=== PATIENT | female | born 1935 | race Caucasian/White ===

== ENCOUNTER 2017-09-17 09:12 | Observation (INO) | payer MEDICARE ==
--- NOTE | 2017-09-17 10:29 | EDM.PDOC ---
ED HPI GENERAL MEDICAL PROBLEM - General Chief Complaint: Gastrointestinal Problem Stated Complaint: VOMITING/DIARRHEA Time Seen by Provider: 09/17/17 10:10 Source of Information: Reports: Patient History Limitations: Reports: No Limitations - History of Present Illness INITIAL COMMENTS - FREE TEXT/NARRATIVE: The patient states that she has had occasional vomiting, and watery diarrhea since 09/14/2017. She states that she does not vomit every day, but typically has 2 episodes of diarrhea during the day, and one at night. She states that she started taking [id number] loperamide on Wednesday, 2017. She does not recall the exact number of tablets she has taken, but is likely taking an appropriate dosage. She is unsure if the loperamide has helped. She denies taking any other [id number] or home remedies for her symptoms. She denies recent abdominal pain. No recent fever. No urinary symptoms. She does feel generally weak. He has had similar symptoms in the past , when she had gastroenteritis. The patient's PCP is Dr. Jasbir Cole. Treatments PIPE THREADER: Reports: Other (see below) Other Treatments PIPE THREADER: immodium - Related Data Allergies Allergy/AdvReac Type Severity Reaction Status Date / Time No Known Allergies Allergy Verified 09/17/17 09:31 Home Meds: Home Meds Aspirin 81 mg PO DAILY 09/17/17 [History] Fish Oil/DHA/EPA [Fish Oil 1,200 MG] 1,200 mg PO DAILY 09/17/17 [History] Flaxseed/Omega3,6,9/Fatty Acid [Flax Seed Oil 1,300 mg Softgel] 1 tab PO DAILY 09/17/17 [History] Lisinopril 20 mg PO BID 09/17/17 [History] Simvastatin [Zocor] 40 mg PO BEDTIME 09/17/17 [History] Ubidecarenone [Co Q-10] 20 mg PO DAILY 09/17/17 [History] Vitamin D3/Vitamin K2 [D3 + K2 Dots 1,000 Unit] 1 each PO DAILY 09/17/17 [ History] hydroCHLOROthiazide [Hydrochlorothiazide] 12.5 mg PO DAILY 09/17/17 [History] metFORMIN HCl [Metformin HCl] 1,000 mg PO BID 09/17/17 [History] Past Medical History Cardiovascular History: Reports: High Cholesterol, Hypertension Endocrine/Metabolic History: Reports: Diabetes, Type II, Obesity/BMI 30+ - Past Surgical History HEENT Surgical History: Reports: Cataract Surgery, Oral Surgery ([place] teeth extraction) GI Surgical History: Reports: Cholecystectomy (around 1997), Hernia, Abdominal ( para-umbilical in the late 1960s) Social & Family History - Family History Cardiac: Reports: Angina, Hypertension - Tobacco Use Smoking Status *Q: Never Smoker Second Hand Smoke Exposure: No - Caffeine Use Caffeine Use: Reports: Coffee - Alcohol Use Alcohol Use History: No - Recreational Drug Use Recreational Drug Use: No - Living Situation & Occupation Living situation: Reports: , Alone Occupation: Retired ED ROS GENERAL - Review of Systems Review Of Systems: ROS reveals no pertinent complaints other than HPI. ED EXAM, GI/ABD - Physical Exam Exam: See Below Exam Limited By: No Limitations General Appearance: Alert, WD/WN, No Apparent Distress Eyes: Bilateral: Normal Appearance, EOMI Ears: Normal External Exam, Hearing Grossly Normal Nose: Normal Inspection, No Blood Throat/Mouth: Normal Inspection, Normal Lips, Normal Voice, No Airway Compromise Head: Atraumatic, Normocephalic Neck: Normal Inspection, Full Range of Motion Respiratory/Chest: No Respiratory Distress, Lungs Clear, Normal Breath Sounds, No Accessory Muscle Use Cardiovascular: Normal Peripheral Pulses, Regular Rate, Rhythm, No Gallop, No JVD, No Murmur, No Rub GI/Abdominal Exam: Normal Bowel Sounds, Soft, Non-Tender, No Organomegaly, No Distention, No Abnormal Bruit, No Mass, Other (Obese) (Female) Exam: Deferred Rectal (Female) Exam: Deferred Back Exam: Normal Inspection, Full Range of Motion, NT Extremities: Normal Inspection, Normal Range of Motion, No Pedal Edema, Normal Capillary Refill, Other (2+ bilateral pretibial edema) Neurological: Alert, Oriented, Normal Cognition, No Motor/Sensory Deficits Psychiatric: Normal Affect Skin Exam: Warm, Dry, Intact, Normal Color, No Rash Course - Vital Signs Last Recorded V/S: Last Vital Signs Temp 36.5 C 09/17/17 09:25 Pulse 77 09/17/17 09:25 Resp 15 09/17/17 09:25 BP 130/60 09/17/17 09:25 Pulse Ox 100 09/17/17 09:25 Orthostatic Blood Pressure [ 111/47 Standing] Orthostatic Blood Pressure [ 130/94 Sitting] Orthostatic Blood Pressure [ 131/52 Supine] - Orders/Labs/Meds Orders: Active Orders 24 hr Category Date Time Status Orthostatic Vital Signs [RC] STAT Care 09/17/17 10:16 Active Orthostatic Vital Signs [RC] STAT Care 09/17/17 11:16 Active UA W/MICROSCOPIC [URIN] Stat Lab 09/17/17 10:45 Ordered Magnesium Sulfate/Water [Magnesium Sulfate 2 GM in Med 09/17/17 11:44 Active Water 50 ML] 2 gm Premix Bag 1 bag IV ONETIME Medication Orders Magnesium Sulfate 2 gm/ Premix 50 mls @ 50 mls/hr IV ONETIME ONE Stop: 09/17/17 12:43 Labs: Laboratory Tests 09/17/17 09/17/17 09/17/17 Range/Units 10:45 11:00 11:00 WBC 9.88 (3.98-10.04) K/mm3 RBC 4.51 (3.98-5.22) M/mm3 Hgb 13.1 (11.2-15.7) gm/L Hct 38.9 (34.1-44.9) % MCV 86.3 (79.4-94.8) fl MCH 29.0 (25.6-32.2) pg MCHC 33.7 (32.2-35.5) g/dl RDW Std Deviation 41.0 (36.4-46.3) fL Plt Count 430 H (182-369) K/mm3 MPV 8.9 L (9.4-12.3) fl Neutrophils % (Manual) 70 H (40-60) % Band Neutrophils % 0 (0-10) % Lymphocytes % (Manual) 20 (20-40) % Atypical Lymphs % 0 % Monocytes % (Manual) 8 (2-10) % Eosinophils % (Manual) 2 (0.7-5.8) % Basophils % (Manual) 0 L (0.1-1.2) Toxic Granulation 2+ moderate Platelet Estimate Adequate Plt Morphology Comment Normal Anisocytosis 1+ slight RBC Morph Comment Not Reportable Sodium 131 L (136-145) mEq/L Potassium 4.5 (3.5-5.1) mEq/L Chloride 94 L (98-107) mEq/L Carbon Dioxide 28 (21-32) mEq/L Anion Gap 13.5 (5-15) BUN 18 (7-18) mg/dL Creatinine 1.1 H (0.55-1.02) mg/dL Est Cr Clr Drug Dosing 37.68 mL/min Estimated GFR (MDRD) 47 (>60) mL/min BUN/Creatinine Ratio 16.4 (14-18) Glucose 176 H (83-115) mg/dL Calcium 9.0 (8.5-10.1) mg/dL Magnesium (1.8-2.4) mg/dl Total Bilirubin 0.8 (0.2-1.0) mg/dL AST 66 H (15-37) U/L ALT 61 H (14-59) U/L Alkaline Phosphatase 120 H (46-116) U/L Total Protein 7.0 (6.4-8.2) g/dl Albumin 3.3 L (3.4-5.0) g/dl Globulin 3.7 gm/dL Albumin/Globulin Ratio 0.9 L (1-2) Urine Color Light yellow (Yellow) Urine Appearance Clear (Clear) Urine pH 7.0 (5.0-8.0) Ur Specific [place] 1.015 (1.005-1.030) Urine Protein Negative (Negative) Urine Glucose (UA) Negative (Negative) Urine Ketones Negative (Negative) Urine Occult Blood Negative (Negative) Urine Nitrite Negative (Negative) Urine Bilirubin Negative (Negative) Urine Urobilinogen 0.2 (0.2-1.0) Ur Leukocyte Esterase Negative (Negative) Urine RBC Not seen (0-5) /hpf Urine WBC Not seen (0-5) /hpf Ur Epithelial Cells 0-5 (0-5) /hpf Urine Bacteria Not seen (FEW) /hpf Urine Mucus Not seen (FEW) /hpf 09/17/17 Range/Units 11:00 WBC (3.98-10.04) K/mm3 RBC (3.98-5.22) M/mm3 Hgb (11.2-15.7) gm/L Hct (34.1-44.9) % MCV (79.4-94.8) fl MCH (25.6-32.2) pg MCHC (32.2-35.5) g/dl RDW Std Deviation (36.4-46.3) fL Plt Count (182-369) K/mm3 MPV (9.4-12.3) fl Neutrophils % (Manual) (40-60) % Band Neutrophils % (0-10) % Lymphocytes % (Manual) (20-40) % Atypical Lymphs % % Monocytes % (Manual) (2-10) % Eosinophils % (Manual) (0.7-5.8) % Basophils % (Manual) (0.1-1.2) Toxic Granulation Platelet Estimate Plt Morphology Comment Anisocytosis RBC Morph Comment Sodium (136-145) mEq/L Potassium (3.5-5.1) mEq/L Chloride (98-107) mEq/L Carbon Dioxide (21-32) mEq/L Anion Gap (5-15) BUN (7-18) mg/dL Creatinine (0.55-1.02) mg/dL Est Cr Clr Drug Dosing mL/min Estimated GFR (MDRD) (>60) mL/min BUN/Creatinine Ratio (14-18) Glucose (83-115) mg/dL Calcium (8.5-10.1) mg/dL Magnesium 1.2 L (1.8-2.4) mg/dl Total Bilirubin (0.2-1.0) mg/dL AST (15-37) U/L ALT (14-59) U/L Alkaline Phosphatase (46-116) U/L Total Protein (6.4-8.2) g/dl Albumin (3.4-5.0) g/dl Globulin gm/dL Albumin/Globulin Ratio (1-2) Urine Color (Yellow) Urine Appearance (Clear) Urine pH (5.0-8.0) Ur Specific [place] (1.005-1.030) Urine Protein (Negative) Urine Glucose (UA) (Negative) Urine Ketones (Negative) Urine Occult Blood (Negative) Urine Nitrite (Negative) Urine Bilirubin (Negative) Urine Urobilinogen (0.2-1.0) Ur Leukocyte Esterase (Negative) Urine RBC (0-5) /hpf Urine WBC (0-5) /hpf Ur Epithelial Cells (0-5) /hpf Urine Bacteria (FEW) /hpf Urine Mucus (FEW) /hpf Meds: Medications Generic Name Dose Route Start Last Admin Trade Name Freq PRN Reason Stop Dose Admin Magnesium Sulfate 2 gm/ Premix 50 mls @ 50 mls/hr 09/17/17 11:44 IV 09/17/17 12:43 ONETIME ONE Discontinued Medications Generic Name Dose Route Start Last Admin Trade Name [place] PRN Reason Stop Dose Admin Sodium Chloride 500 mls @ 1,000 mls/hr 09/17/17 11:16 09/17/17 11:23 Normal Saline IV 09/17/17 11:45 1,000 mls/hr .BOLUS ONE Administration - Re-Assessments/Exams Free Text/Narrative Re-Assessment/Exam: 09/17/17 10:29 The patient reports an approximately four-day history of nausea, vomiting, and diarrhea, although no other symptoms, such as abdominal pain or fever. No urinary symptoms. I have ordered orthostatics, some blood work, and a urinalysis. 09/17/17 11:16 The patient is orthostatic. I have ordered a 500 mL bolus of NS, then will recheck orthostatics. 09/17/17 11:44 The patient's CBC is remarkable only for thrombocytosis. Her CMP is marked for a sodium depressed at 131, and creatinine slightly elevated at 1.1. Her blood glucose is elevated at 176, however, she has a history of diabetes. Her magnesium is significantly depressed at 1.2. Her urinalysis is unremarkable. I have ordered a 2 g Mg-rider. I am told by [facility] that the patient does not feel comfortable going home today. She is requesting admission to the hospital. I will talk to Dr. Orozco about observation. 09/17/17 11:[address] Orozco at 11:47. She accepts the patient for placement into observation. Departure - Departure Time of Disposition: 11:48 Disposition: Refer to Observation Condition: Good Clinical Impression: Hypomagnesemia, Hyponatremia, Hyperglycemia due to type 2 diabetes mellitus, Generalized weakness, Orthostasis - Discharge Information *PRESCRIPTION DRUG MONITORING PROGRAM REVIEWED*: Not Applicable *COPY OF PRESCRIPTION DRUG MONITORING REPORT IN PATIENT CED: Not Applicable - My Orders Last 24 Hours: My Active Orders 09/17/17 10:16 Orthostatic Vital Signs [RC] STAT 09/17/17 10:45 UA W/MICROSCOPIC [URIN] Stat 09/17/17 11:16 Orthostatic Vital Signs [RC] STAT 09/17/17 11:44 Magnesium Sulfate/Water [Magnesium Sulfate 2 GM in Water 50 ML] 2 gm Premix Bag 1 bag IV ONETIME - Assessment/Plan Last 24 Hours: My Active Orders 09/17/17 10:16 Orthostatic Vital Signs [RC] STAT 09/17/17 10:45 UA W/MICROSCOPIC [URIN] Stat 09/17/17 11:16 Orthostatic Vital Signs [RC] STAT 09/17/17 11:44 Magnesium Sulfate/Water [Magnesium Sulfate 2 GM in Water 50 ML] 2 gm Premix Bag 1 bag IV ONETIME
[2017-09-17] MEDS ORDERED: Sodium Chloride 0.9% 500 ML IV ONE (11:16)
[2017-09-17] MEDS ORDERED: Magnesium Sulfate/Water 2 GM in Premix Bag 1 BAG IV ONE ×2 (11:44→14:59)
[2017-09-17] MEDS ORDERED: Albuterol/Ipratropium 3.0-0.5 MG/3 ML Neb Soln NEB PRN (14:23)
[2017-09-17] MEDS ORDERED: Acetaminophen/HYDROcodone 325-5 MG Tab PO PRN (14:23)
[2017-09-17] MEDS ORDERED: Acetaminophen 325 MG Tab PO PRN (14:23)
[2017-09-17] MEDS ORDERED: HYDROmorphone 0.5 MG/0.5 ML SYRINGE IVPUSH PRN (14:23)
[2017-09-17] MEDS ORDERED: Temazepam 7.5 MG Cap PO PRN (14:23)
[2017-09-17] MEDS ORDERED: Promethazine 6.25 MG in Sodium Chloride 0.9% 50 ML IV PRN (14:23)
[2017-09-17] MEDS ORDERED: Promethazine 25 MG Tab PO PRN (14:23)
--- NOTE | 2017-09-17 14:23 | PCM.HP ---
H&P History of Present Illness - General Date of Service: 09/17/17 Admit Problem/Dx: Admission Diagnosis/Problem Admission Diagnosis/Problem Weakness Source of Information: Patient, Old Records History Limitations: Reports: No Limitations - History of Present Illness Initial Comments - Free Text/Narative: This is an 82 y/o female who with PMHx of HTN, HLD, Type 2 DM, obesity, cholecystectomy, and abdominal hernia who comes in for diarrhea and weakness. Her work-up in the ED included CBC that was remarkable for 70% neutrophils and platelet 430. CMP remarkable for Na 131, Cr 1.1, eGFR 47, glucose 176, AST 66, ALT 61, alk phos 120, albumin 3.3. Mg was low a 1.2. UA was negative. She was orthostatic in ED and NS 500 ml bolus was ordered. Patient reports that she has been experiencing diarrhea for the past 3 days. She reports her stool is watery and brown. She denies mucous or blood present in stool. She denies recent course of antibiotics. She denies abdominal pain. She reports 1 episode of vomiting that did not contain any blood. She denies sick contacts or bad food exposure. She denies any recent weight changes. She is normally independent at home. Of note, patient endorses recent fall and has significant ecchymosis present on right shoulder, right elbow, and right LE. She denies LOC or presyncopal episode with the fall and states that she was stepping down some steps with a large watering can and simply missed the step. She is subsequently admitted to observation with Tele. Patient is a never smoker. Code status is Full Code. PCP is Dr. Jasbir Cole Jr. - Related Data Allergies/Adverse Reactions: Allergies Allergy/AdvReac Type Severity Reaction Status Date / Time No Known Allergies Allergy Verified 09/17/17 09:31 Home Medications: Home Meds Aspirin 81 mg PO DAILY 09/17/17 [History] Calcium Carbonate [Tums] 1 tab PO BEDTIME PRN 09/17/17 [History] Fish Oil/DHA/EPA [Fish Oil 1,200 MG] 1,200 mg PO DAILY 09/17/17 [History] Flaxseed/Omega3,6,9/Fatty Acid [Flax Seed Oil 1,300 mg Softgel] 1 tab PO DAILY 09/17/17 [History] Lisinopril 20 mg PO BID 09/17/17 [History] Naproxen Sodium [Aleve] 220 mg PO DAILY PRN 09/17/17 [History] Simvastatin [Zocor] 40 mg PO BEDTIME 09/17/17 [History] Ubidecarenone [Co Q-10] 20 mg PO DAILY 09/17/17 [History] Vitamin B Complex & Vit C No.4 [Super B Complex] 1 tab PO DAILY 09/17/17 [ History] Vitamin D3/Vitamin K2 [D3 + K2 Dots 1,000 Unit] 1 each PO DAILY 09/17/17 [ History] hydroCHLOROthiazide [Hydrochlorothiazide] 12.5 mg PO DAILY 09/17/17 [History] metFORMIN HCl [Metformin HCl] 1,000 mg PO BID 09/17/17 [History] Past Medical History HEENT History: Reports: Cataract Cardiovascular History: Reports: High Cholesterol, Hypertension Endocrine/Metabolic History: Reports: Diabetes, Type II, Obesity/BMI 30+ - Past Surgical History HEENT Surgical History: Reports: Cataract Surgery, Oral Surgery ([place] teeth extraction) GI Surgical History: Reports: Cholecystectomy (around 1997), Hernia, Abdominal ( para-umbilical in the late ) Social & Family History - Family History Cardiac: Reports: Angina, Hypertension - Tobacco Use Smoking Status *Q: Never Smoker Second Hand Smoke Exposure: No - Caffeine Use Caffeine Use: Reports: Coffee - Recreational Drug Use Recreational Drug Use: No - Living Situation & Occupation Living situation: Reports: , Alone Occupation: Retired H&P Review of Systems - Review of Systems: Review Of Systems: See Below General: Reports: No Symptoms. Denies: Fever, Chills, Weight Loss, Weight Gain HEENT: Reports: No Symptoms. Denies: Sinus Congestion Pulmonary: Reports: No Symptoms. Denies: Shortness of Breath, Cough Cardiovascular: Reports: No Symptoms. Denies: Chest Pain, Palpitations, Syncope Gastrointestinal: Reports: Diarrhea. Denies: Abdominal Pain, Constipation, Decreased Appetite, Hematochezia, Melena, Mucous in Stool, Nausea, Vomiting Genitourinary: Reports: No Symptoms. Denies: Dysuria, Frequency, Burning Musculoskeletal: Reports: Leg Pain Skin: Reports: No Symptoms Psychiatric: Reports: No Symptoms. Denies: Confusion Neurological: Reports: No Symptoms. Denies: Confusion, Dizziness, Headache, Numbness, Paresthesia Hematologic/Lymphatic: Reports: No Symptoms Immunologic: Reports: No Symptoms Exam - Exam Exam: See Below - Vital Signs Vital Signs: Last Vital Signs Temp 97.7 F 09/17/17 09:25 Pulse 77 09/17/17 09:25 Resp 15 09/17/17 09:25 BP 130/60 09/17/17 09:25 Pulse Ox 100 09/17/17 09:25 Orthostatic Blood Pressure [ 111/47 Standing] Orthostatic Blood Pressure [ 130/94 Sitting] Orthostatic Blood Pressure [ 131/52 Supine] Weight: 200 lb - Exam Quality Assessment: No: Supplemental Oxygen General: Alert, Oriented, Cooperative, Other (No acue distress) HEENT: EOMI, Pupils Equal, Pupils Reactive, Other (Facial hair present on upper lip) Neck: Supple, Trachea Midline. No: Lymphadenopathy Lungs: Clear to Auscultation, Normal Respiratory Effort Cardiovascular: Regular Rate, Regular Rhythm, Normal S1, Normal S2 GI/Abdominal Exam: Normal Bowel Sounds, Soft (obese), Non-Tender, No Organomegaly, No Distention. No: Guarding, Rebound (Female) Exam: Deferred Rectal (Female) Exam: Deferred Back Exam: Normal Inspection, Full Range of Motion Extremities: Normal Inspection, Normal Range of Motion, Non-Tender, Normal Capillary Refill, Pedal Edema (trace b/l LE) Peripheral Pulses: 1+: Radial (L), Radial (R), Posterior Tibial (L), Posterior Tibial (R), Dorsalis Pedis (L), Dorsalis Pedis (R) Skin: Warm, Dry, Intact, Ecchymosis (right shoulder, right elbow, right LE) Neurological: Cranial Nerves Intact (grossly), Strength Equal Bilateral Neuro Extensive - Mental Status: Alert, Oriented x3, Normal Mood/Affect, Normal Cognition, Memory Intact Psychiatric: Alert, Normal Affect, Normal Mood - Patient Data Lab Results Last 24 hrs: Laboratory Results - last 24 hr 09/17/17 09/17/17 09/17/17 Range/Units 10:45 11:00 11:00 WBC 9.88 (3.98-10.04) K/mm3 RBC 4.51 (3.98-5.22) M/mm3 Hgb 13.1 (11.2-15.7) gm/L Hct 38.9 (34.1-44.9) % MCV 86.3 (79.4-94.8) fl MCH 29.0 (25.6-32.2) pg MCHC 33.7 (32.2-35.5) g/dl RDW Std Deviation 41.0 (36.4-46.3) fL Plt Count 430 H (182-369) K/mm3 MPV 8.9 L (9.4-12.3) fl Neutrophils % (Manual) 70 H (40-60) % Band Neutrophils % 0 (0-10) % Lymphocytes % (Manual) 20 (20-40) % Atypical Lymphs % 0 % Monocytes % (Manual) 8 (2-10) % Eosinophils % (Manual) 2 (0.7-5.8) % Basophils % (Manual) 0 L (0.1-1.2) Toxic Granulation 2+ moderate Platelet Estimate Adequate Plt Morphology Comment Normal Anisocytosis 1+ slight RBC Morph Comment Not Reportable Sodium 131 L (136-145) mEq/L Potassium 4.5 (3.5-5.1) mEq/L Chloride 94 L (98-107) mEq/L Carbon Dioxide 28 (21-32) mEq/L Anion Gap 13.5 (5-15) BUN 18 (7-18) mg/dL Creatinine 1.1 H (0.55-1.02) mg/dL Est Cr Clr Drug Dosing 37.68 mL/min Estimated GFR (MDRD) 47 (>60) mL/min BUN/Creatinine Ratio 16.4 (14-18) Glucose 176 H (83-115) mg/dL Calcium 9.0 (8.5-10.1) mg/dL Magnesium (1.8-2.4) mg/dl Total Bilirubin 0.8 (0.2-1.0) mg/dL AST 66 H (15-37) U/L ALT 61 H (14-59) U/L Alkaline Phosphatase 120 H (46-116) U/L Total Protein 7.0 (6.4-8.2) g/dl Albumin 3.3 L (3.4-5.0) g/dl Globulin 3.7 gm/dL Albumin/Globulin Ratio 0.9 L (1-2) Urine Color Light yellow (Yellow) Urine Appearance Clear (Clear) Urine pH 7.0 (5.0-8.0) Ur Specific [place] 1.015 (1.005-1.030) Urine Protein Negative (Negative) Urine Glucose (UA) Negative (Negative) Urine Ketones Negative (Negative) Urine Occult Blood Negative (Negative) Urine Nitrite Negative (Negative) Urine Bilirubin Negative (Negative) Urine Urobilinogen 0.2 (0.2-1.0) Ur Leukocyte Esterase Negative (Negative) Urine RBC Not seen (0-5) /hpf Urine WBC Not seen (0-5) /hpf Ur Epithelial Cells 0-5 (0-5) /hpf Urine Bacteria Not seen (FEW) /hpf Urine Mucus Not seen (FEW) /hpf 09/17/17 Range/Units 11:00 WBC (3.98-10.04) K/mm3 RBC (3.98-5.22) M/mm3 Hgb (11.2-15.7) gm/L Hct (34.1-44.9) % MCV (79.4-94.8) fl MCH (25.6-32.2) pg MCHC (32.2-35.5) g/dl RDW Std Deviation (36.4-46.3) fL Plt Count (182-369) K/mm3 MPV (9.4-12.3) fl Neutrophils % (Manual) (40-60) % Band Neutrophils % (0-10) % Lymphocytes % (Manual) (20-40) % Atypical Lymphs % % Monocytes % (Manual) (2-10) % Eosinophils % (Manual) (0.7-5.8) % Basophils % (Manual) (0.1-1.2) Toxic Granulation Platelet Estimate Plt Morphology Comment Anisocytosis RBC Morph Comment Sodium (136-145) mEq/L Potassium (3.5-5.1) mEq/L Chloride (98-107) mEq/L Carbon Dioxide (21-32) mEq/L Anion Gap (5-15) BUN (7-18) mg/dL Creatinine (0.55-1.02) mg/dL Est Cr Clr Drug Dosing mL/min Estimated GFR (MDRD) (>60) mL/min BUN/Creatinine Ratio (14-18) Glucose (83-115) mg/dL Calcium (8.5-10.1) mg/dL Magnesium 1.2 L (1.8-2.4) mg/dl Total Bilirubin (0.2-1.0) mg/dL AST (15-37) U/L ALT (14-59) U/L Alkaline Phosphatase (46-116) U/L Total Protein (6.4-8.2) g/dl Albumin (3.4-5.0) g/dl Globulin gm/dL Albumin/Globulin Ratio (1-2) Urine Color (Yellow) Urine Appearance (Clear) Urine pH (5.0-8.0) Ur Specific [place] (1.005-1.030) Urine Protein (Negative) Urine Glucose (UA) (Negative) Urine Ketones (Negative) Urine Occult Blood (Negative) Urine Nitrite (Negative) Urine Bilirubin (Negative) Urine Urobilinogen (0.2-1.0) Ur Leukocyte Esterase (Negative) Urine RBC (0-5) /hpf Urine WBC (0-5) /hpf Ur Epithelial Cells (0-5) /hpf Urine Bacteria (FEW) /hpf Urine Mucus (FEW) /hpf Result Diagrams: 09/17/17 11:00 09/17/17 11:00 Problem List Initiated/Reviewed/Updated: Yes Orders Last 24hrs: Active Orders 24 hr Category Date Time Status Patient Status [ADT] Routine ADT 09/17/17 14:01 Active Orthostatic Vital Signs [RC] STAT Care 09/17/17 10:16 Active Orthostatic Vital Signs [RC] STAT Care 09/17/17 11:16 Active UA W/MICROSCOPIC [URIN] Stat Lab 09/17/17 10:45 Ordered Assessment/Plan Comment:: Assessment/Plan: Acute: Diarrhea * Patient has been experiencing for three days * She reports her stool is watery and brown with no mucous or blood present * Afebrile with no leukocytosis * Denies abdominal pain * No recent travel, bad food exposure, or antibiotic use * She has been on Metformin for many years * Infectious work up: * Stool WBC pending * CRP 3.2 * Plan: * NPO diet * IVF NS at 75 ml/hr * Loperamide prn ONLY Hypomagnesemia * Mg 1.2 in ED * Received Mg sulfate 2 gm IV in ED --> will order additional Mg sulfate 2 gm * She is experiencing leg cramping * Monitor Hyponatremia * Na 131 in ED * Received NS 500 ml bolus in ED * Will order NS at 75 ml/hr * Monitor Hyperglycemia * Glucose 176 in ED * Patient has hx/o type 2 DM * Continue home meds * AccuCheck AM and HS --> if indicated, consider ISS during admission Weakness * Likely 2/2 current medical state * She did have a recent fall with no LOC or presyncopal episode * Orthostatic in ED * PT/OT consult --> recommendation return home with tub t/f bench, GB, and toilet safety frame placement; PT also verbally stated that patient may benefit from cane Chronic: HTN HLD Type 2 DM Obesity Hx/o cholecystectomy Abdominal hernia Plan: Admit observation with Tele Routine AM Labs Continue most of home meds PRN Meds for GI symptoms control NPO diet Code Status: CPR/DNI PCP: Dr. Jasbir Cole Jr
[2017-09-17] MEDS ORDERED: Sodium Chloride 0.9% 1,000 ML IV SCH (14:30)
[2017-09-17] MEDS ORDERED: Loperamide 2 MG Cap PO PRN (15:27)
[2017-09-17] MEDS ORDERED: Metoprolol Tartrate 5 MG/5 ML SDV IVPUSH PRN (15:45)
[2017-09-17] MEDS: Metoprolol Tartrate 25 MG Tab PO SCH (16:27)
[2017-09-17] MEDS ORDERED: Calcium Carbonate 500 MG Tab.Chew PO PRN (21:00)
[2017-09-18] MEDS: Metoprolol Tartrate 25 MG Tab PO SCH (04:24)
[2017-09-18] MEDS ORDERED: LISINOPRIL 20 MG PO SCH (09:00)
[2017-09-18] MEDS ORDERED: METFORMIN HCL 1000 MG PO SCH (09:00)
[2017-09-18] MEDS ORDERED: BAYER ASPIRIN 81 MG PO SCH (09:00)
[2017-09-18] MEDS ORDERED: HYDROCHLOROTHIAZIDE 12.5 MG PO SCH (09:00)
--- NOTE | 2017-09-18 13:17 | PCM.DCSUM1 ---
Discharge Summary - Hospital Course Free Text/Narrative:: 82 year old female reportedly orthostatic in the ED, described having diarrhea [employer]. Received aggressive hydration and her diet restarted with good results. A questionable episode of PSVT at 140 BPM was noted briefly on telemetry, however it was not sustained. It resolved faster than a 12 lead ECG could be obtained. The patient remained asymptomatic. No medications were adjusted, Lopressor was used but DCd, the patient will have a Holter monitor for 24 hours re: PSVT. She was DCd to home, and has a follow upp appointment with her primary, Dr Cole. HPI Initial Comments: This is an 82 y/o female who with PMHx of HTN, HLD, Type 2 DM, obesity, cholecystectomy, and abdominal hernia who comes in for diarrhea and weakness. Her work-up in the ED included CBC that was remarkable for 70% neutrophils and platelet 430. CMP remarkable for Na 131, Cr 1.1, eGFR 47, glucose 176, AST 66, ALT 61, alk phos 120, albumin 3.3. Mg was low a 1.2. UA was negative. She was orthostatic in ED and NS 500 ml bolus was ordered. Patient reports that she has been experiencing diarrhea for the past 3 days. She reports her stool is watery and brown. She denies mucous or blood present in stool. She denies recent course of antibiotics. She denies abdominal pain. She reports 1 episode of vomiting that did not contain any blood. She denies sick contacts or bad food exposure. She denies any recent weight changes. She is normally independent at home. Of note, patient endorses recent fall and has significant ecchymosis present on right shoulder, right elbow, and right LE. She denies LOC or presyncopal episode with the fall and states that she was stepping down some steps with a large watering can and simply missed the step. She is subsequently admitted to observation with Tele. Patient is a never smoker. Code status is Full Code. PCP is Dr. Jasbir Cole Jr. Diagnosis: Stroke: No - Discharge Data Discharge Date: 09/18/17 Discharge Disposition: Home, Self-Care 01 Condition: Good - Patient Summary/Data Consults: Consultations 09/17/17 14:23 OT Evaluation and Treatment [CONS] Routine PT Evaluation and Treatment [CONS] Routine - Patient Instructions Diet: Heart Healthy Diet, Diabetic Diet Activity: As Tolerated Driving: Do Not Drive Showering/Bathing: May Shower Notify Provider of: Fever, Increased Pain, Nausea and/or Vomiting - Discharge Plan *PRESCRIPTION DRUG MONITORING PROGRAM REVIEWED*: Not Applicable *COPY OF PRESCRIPTION DRUG MONITORING REPORT IN PATIENT CED: Not Applicable Prescriptions/Med Rec: Loperamide [Imodium] 2 mg PO Q6H PRN #30 cap PRN Reason: Diarrhea Home Medications: Home Meds Aspirin 81 mg PO DAILY 09/17/17 [History] Calcium Carbonate [Tums] 1 tab PO BEDTIME PRN 09/17/17 [History] Cholecalciferol (Vitamin D3) [Vitamin D3] 1 tab PO QPM 09/17/17 [History] Fish Oil/DHA/EPA [Fish Oil 1,200 MG] 1,200 mg PO QPM 09/17/17 [History] Flaxseed/Omega3,6,9/Fatty Acid [Flax Seed Oil 1,300 mg Softgel] 1 tab PO DAILY 09/17/17 [History] Lisinopril 20 mg PO BID 09/17/17 [History] Naproxen Sodium [Aleve] 220 mg PO DAILY PRN 09/17/17 [History] Simvastatin [Zocor] 40 mg PO BEDTIME 09/17/17 [History] Ubidecarenone [Co Q-10] 20 mg PO DAILY 09/17/17 [History] Vitamin B Complex & Vit C No.4 [Super B Complex] 1 tab PO DAILY 09/17/17 [ History] hydroCHLOROthiazide [Hydrochlorothiazide] 12.5 mg PO DAILY 09/17/17 [History] metFORMIN HCl [Metformin HCl] 1,000 mg PO BID 09/17/17 [History] Loperamide [Imodium] 2 mg PO Q6H PRN #30 cap 09/18/17 [Rx] Patient Handouts: Hyponatremia, [id number], Hypomagnesemia Referrals: Jasbir Cole Jr, MD [Primary Care Provider] - (Please call on Wednesday to schedule a post-hospital follow-up appointment with your primary care doctor, Dr. Jasbir Cole, for within 7 to 10 days. ) - Discharge Summary/Plan Comment DC Time >30 min.: No Discharge Summary/Plan Comment: Assessment/Plan: Acute: Diarrhea * Patient has been experiencing for three days * She reports her stool is watery and brown with no mucous or blood present * Afebrile with no leukocytosis * Denies abdominal pain * No recent travel, bad food exposure, or antibiotic use * She has been on Metformin for many years * Infectious work up: * Stool WBC pending * CRP 3.2 * Plan: * NPO diet * IVF NS at 75 ml/hr * Loperamide prn ONLY Hypomagnesemia * Mg 1.2 in ED * Received Mg sulfate 2 gm IV in ED --> will order additional Mg sulfate 2 gm * She is experiencing leg cramping * Monitor Hyponatremia * Na 131 in ED * Received NS 500 ml bolus in ED * Will order NS at 75 ml/hr * Monitor Hyperglycemia * Glucose 176 in ED * Patient has hx/o type 2 DM * Continue home meds * AccuCheck AM and HS --> if indicated, consider ISS during admission Weakness * Likely 2/2 current medical state * She did have a recent fall with no LOC or presyncopal episode * Orthostatic in ED * PT/OT consult --> recommendation return home with tub t/f bench, GB, and toilet safety frame placement; PT also verbally stated that patient may benefit from cane Chronic: HTN HLD Type 2 DM Obesity Hx/o cholecystectomy Abdominal hernia Plan: Admit observation with Tele Routine AM Labs Continue most of home meds PRN Meds for GI symptoms control NPO diet Code Status: CPR/DNI PCP: Dr. Jasbir Cole Jr Additional CC's: Jasbir Cole Jr - General Info Date of Service: 09/17/17 Functional Status: Reports: Pain Controlled, Tolerating Diet, Ambulating, Urinating - Review of Systems General: Reports: No Symptoms HEENT: Reports: No Symptoms Pulmonary: Reports: No Symptoms Cardiovascular: Reports: No Symptoms Gastrointestinal: Reports: No Symptoms Genitourinary: Reports: No Symptoms Musculoskeletal: Reports: No Symptoms Neurological: Reports: No Symptoms Psychiatric: Reports: No Symptoms - Patient Data Vitals - Most Recent: Last Vital Signs Temp 37.0 C 09/18/17 13:03 Pulse 72 09/18/17 13:03 Resp 14 09/18/17 13:03 BP 105/89 09/18/17 13:03 Pulse Ox 93 L 09/18/17 13:03 Orthostatic Blood Pressure [ 111/47 Standing] Orthostatic Blood Pressure [ 130/94 Sitting] Orthostatic Blood Pressure [ 131/52 Supine] Weight - Most Recent: 91.626 kg I&O - Last 24 hours: Intake & Output 09/17/17 09/18/17 09/18/17 22:59 06:59 14:59 Intake Total 490 1356 180 Output Total 200 Balance 290 1356 180 Lab Results - Last 24 hrs: Laboratory Results - last 24 hr 09/17/17 09/18/17 09/18/17 Range/Units 11:00 05:31 05:31 WBC 8.06 (3.98-10.04) K/mm3 RBC 3.92 L (3.98-5.22) M/mm3 Hgb 11.6 (11.2-15.7) gm/L Hct 34.7 (34.1-44.9) % MCV 88.5 (79.4-94.8) fl MCH 29.6 (25.6-32.2) pg MCHC 33.4 (32.2-35.5) g/dl RDW Std Deviation 41.3 (36.4-46.3) fL Plt Count 385 H (182-369) K/mm3 MPV 9.1 L (9.4-12.3) fl Neut % (Auto) 70.0 (34.0-71.1) % Lymph % (Auto) 16.5 L (19.3-51.7) % Perkins % (Auto) 10.9 (4.7-12.5) % Eos % (Auto) 2.0 (0.7-5.8) Baso % (Auto) 0.2 (0.1-1.2) % Neut # (Auto) 5.64 (1.56-6.13) K/mm3 Lymph # (Auto) 1.33 (1.18-3.74) K/mm3 Perkins # (Auto) 0.88 H (0.24-0.36) K/mm3 Eos # (Auto) 0.16 (0.04-0.36) K/mm3 Baso # (Auto) 0.02 (0.01-0.08) K/mm3 Sodium 134 L (136-145) mEq/L Potassium 4.2 (3.5-5.1) mEq/L Chloride 98 (98-107) mEq/L Carbon Dioxide 28 (21-32) mEq/L Anion Gap 12.2 (5-15) BUN 14 (7-18) mg/dL Creatinine 0.8 (0.55-1.02) mg/dL Est Cr Clr Drug Dosing 49.88 mL/min Estimated GFR (MDRD) > 60 (>60) mL/min BUN/Creatinine Ratio 17.5 (14-18) Glucose 145 H (83-115) mg/dL POC Glucose (83-110) mg/dL Calcium 7.9 L (8.5-10.1) mg/dL Magnesium 1.8 (1.8-2.4) mg/dl C-Reactive Protein 3.2 H* (<1.0) mg/dL 09/18/17 Range/Units 12:00 WBC (3.98-10.04) K/mm3 RBC (3.98-5.22) M/mm3 Hgb (11.2-15.7) gm/L Hct (34.1-44.9) % MCV (79.4-94.8) fl MCH (25.6-32.2) pg MCHC (32.2-35.5) g/dl RDW Std Deviation (36.4-46.3) fL Plt Count (182-369) K/mm3 MPV (9.4-12.3) fl Neut % (Auto) (34.0-71.1) % Lymph % (Auto) (19.3-51.7) % Perkins % (Auto) (4.7-12.5) % Eos % (Auto) (0.7-5.8) Baso % (Auto) (0.1-1.2) % Neut # (Auto) (1.56-6.13) K/mm3 Lymph # (Auto) (1.18-3.74) K/mm3 Perkins # (Auto) (0.24-0.36) K/mm3 Eos # (Auto) (0.04-0.36) K/mm3 Baso # (Auto) (0.01-0.08) K/mm3 Sodium (136-145) mEq/L Potassium (3.5-5.1) mEq/L Chloride (98-107) mEq/L Carbon Dioxide (21-32) mEq/L Anion Gap (5-15) BUN (7-18) mg/dL Creatinine (0.55-1.02) mg/dL Est Cr Clr Drug Dosing mL/min Estimated GFR (MDRD) (>60) mL/min BUN/Creatinine Ratio (14-18) Glucose (83-115) mg/dL POC Glucose 181 H (83-110) mg/dL Calcium (8.5-10.1) mg/dL Magnesium (1.8-2.4) mg/dl C-Reactive Protein (<1.0) mg/dL BETO Results - Last 24 hrs: Microbiology 09/17/17 20:25 Stool for WBCs - Final Stool / Feces Med Orders - Current: Current Medications Acetaminophen (Tylenol) 650 mg PO Q4H PRN PRN Reason: Pain (Mild 1-3)/fever Hydrocodone Bitart/Acetaminophen (Bowman 325-5 Mg) 1 tab PO Q4H PRN PRN Reason: Pain (moderate 4-6) Last Admin: 09/17/17 15:49 Dose: 1 tab Albuterol/Ipratropium (Duoneb 3.0-0.5 Mg/3 Ml) 3 ml NEB Q4H PRN PRN Reason: Shortness Of Breath/wheezing Calcium Carbonate/Glycine (Tums) 500 mg PO BEDTIME PRN PRN Reason: acid reflux Hydrochlorothiazide (Hydrochlorothiazide) 12.5 mg PO DAILY [facility] Last Admin: 09/18/17 10:01 Dose: 12.5 mg Hydromorphone HCl (Dilaudid) 0.25 mg IVPUSH Q2H PRN PRN Reason: Pain (severe 7-10) Promethazine HCl 6.25 mg/ (Sodium Chloride) 50.25 mls @ 100 mls/hr IV Q6H PRN PRN Reason: Nausea/Vomiting Sodium Chloride (Normal Saline) 1,000 mls @ 75 mls/hr IV ASDIRECTED [facility] Last Admin: 09/17/17 15:49 Dose: 75 mls/hr Lisinopril (Prinivil) 20 mg PO BID [facility] Last Admin: 09/18/17 10:02 Dose: 20 mg Loperamide HCl (Imodium) 2 mg PO Q6H PRN PRN Reason: Diarrhea Metoprolol Tartrate (Lopressor) 5 mg IVPUSH Q6H PRN PRN Reason: Tachycardia Metoprolol Tartrate (Lopressor) 25 mg PO Q12H [facility] Last Admin: 09/18/17 04:24 Dose: Not Given Naproxen (Naprosyn) 187.5 mg PO DAILY PRN PRN Reason: Pain Sherif Aspirin 81 Mg (Tab Ec) 0 each PO DAILY [facility] Last Admin: 09/18/17 10:01 Dose: 1 each Metformin Hcl 1,000 (Mg) 0 each PO BIDMEALS [facility] Last Admin: 09/18/17 10:01 Dose: 1 each Promethazine HCl (Phenergan) 25 mg PO Q6H PRN PRN Reason: Nausea/Vomiting Simvastatin (Zocor) 40 mg PO BEDTIME JANET Temazepam (Restoril) 7.5 mg PO BEDTIME PRN PRN Reason: Sleep Discontinued Medications Sodium Chloride (Normal Saline) 500 mls @ 1,000 mls/hr IV .BOLUS ONE Stop: 09/17/17 11:45 Last Admin: 09/17/17 11:23 Dose: 1,000 mls/hr Magnesium Sulfate 2 gm/ Premix 50 mls @ 50 mls/hr IV ONETIME ONE Stop: 09/17/17 12:43 Last Admin: 09/17/17 11:49 Dose: 50 mls/hr Magnesium Sulfate 2 gm/ Premix 50 mls @ 25 mls/hr IV ONETIME ONE Stop: 09/17/17 16:58 Last Admin: 09/17/17 16:25 Dose: 25 mls/hr - Exam Quality Assessment: Reports: DVT Prophylaxis General: Reports: Alert, Oriented, Cooperative, No Acute Distress HEENT: Reports: Pupils Equal, Pupils Reactive, EOMI Neck: Reports: Trachea Midline, No JVD Lungs: Reports: Normal Respiratory Effort Cardiovascular: Reports: Regular Rate, Regular Rhythm GI/Abdominal Exam: Normal Bowel Sounds, Soft, Non-Tender, No Organomegaly, No Distention (Female) Exam: Deferred Rectal (Female) Exam: Deferred Back Exam: Reports: Normal Inspection, Full Range of Motion Extremities: Normal Inspection, Non-Tender, Normal Capillary Refill Skin: Reports: Warm, Dry Wound/Incisions: Reports: Erythema Improving Neurological: Reports: Normal Gait, Normal Speech Psy/Mental Status: Reports: Alert, Normal Affect, Normal Mood
[2017-09-18] MEDS ORDERED: SIMVASTATIN 40 MG PO SCH (21:00)
== END 2017-09-18 14:15 | disposition home or self-care (01) ==
LOC: JD.ED 09:12 → JD.MS 12:08
PROVIDERS: ADMIT Internal Medicine Cardiovascular Disease; ATTEND Internal Medicine Cardiovascular Disease
DX: R19.7 Diarrhea, unspecified (principal); R11.10 Vomiting, unspecified; I10 Essential (primary) hypertension; E78.5 Hyperlipidemia, unspecified; E11.65 Type 2 diabetes mellitus with hyperglycemia; E66.9 Obesity, unspecified; E87.1 Hypo-osmolality and hyponatremia; E83.42 Hypomagnesemia; Z90.49 Acquired absence of other specified parts of digestive tract; Z79.82 Long term (current) use of aspirin; Z79.84 Long term (current) use of oral hypoglycemic drugs; Z79.899 Other long term (current) drug therapy
CPT/HCPCS: 36415; 80048; 80053; 81001; 82962; 83735; 85007; 85025; 85027; 86140; 89055; 96365; 97161; 97165; 97530; 99285; A9270; J7040; 96361; 96366; G0378; J3475

== ENCOUNTER 2017-09-19 08:10 | Inpatient (IN) | payer MEDICARE ==
[2017-09-19] MEDS ORDERED: Sodium Chloride 0.9% 10 ML Syringe FLUSH PRN ×2 (08:55→13:09)
--- NOTE | 2017-09-19 10:22 | US ---
Right lower extremity deep venous ultrasound: Duplex and color flow imaging was obtained of the right common femoral, as proximal greater saphenous, superficial femoral, popliteal, posterior tibial and peroneal veins. Left common femoral vein was also evaluated. Normal phasic flow, augmentation and compression is seen. Impression: 1. No evidence of deep venous thrombosis within the right lower extremity or within the left common femoral vein. Diagnostic code #1
--- NOTE | 2017-09-19 11:01 | CR ---
Chest: Portable view of the chest was obtained. Comparison: No prior chest x-ray. Heart size appears within normal limits for portable technique. Tortuous thoracic aorta is seen. Lungs are clear with no acute parenchymal densities. Slightly comminuted distal right clavicle fracture is seen. Please correlate as to the age of this finding. Impression: 1. Slightly comminuted distal right clavicle fracture. Please correlate to the age of this finding. 2. Nothing acute is otherwise seen on portable chest x-ray. Diagnostic code #3
--- NOTE | 2017-09-19 11:03 | EDM.PDOC ---
ED HPI GENERAL MEDICAL PROBLEM - General Chief Complaint: General Stated Complaint: SOB/SWELLING Time Seen by Provider: 09/19/17 08:16 Source of Information: Reports: Patient, Family History Limitations: Reports: No Limitations - History of Present Illness INITIAL COMMENTS - FREE TEXT/NARRATIVE: The patient presents with generalized weakness, diarrhea and shortness of breath. The patient was just discharged from the hospital yesterday. She was admitted on Wednesday for generalized weakness and diarrhea. She did good in the hospital. She was given some fluids. She did have a run of tachycardia but it was not caught on any telemetry or EKG. A holter monitor was put on and she went home and she did good. Her son checked on her in the afternoon and evening. She woke up this morning and she was doing fine. At about 8am she developed shortness of breath, generalized weakness, shakiness and she had 1 episode of diarrhea. She then called her son who brought her in. She has no fever, chills, cough, headache, chest pain, abdominal pain, nausea or vomiting. She has no dysuria or hematuria. Onset: Sudden Duration: Hour(s): (8am this morning) Severity: Mild Improves with: Reports: None Worsens with: Reports: None Associated Symptoms: Reports: Shortness of Breath. Denies: Chest Pain, Cough, Fever/Chills, Headaches, Nausea/Vomiting - Related Data Allergies Allergy/AdvReac Type Severity Reaction Status Date / Time No Known Allergies Allergy Verified 09/19/17 08:21 Home Meds: Home Meds Aspirin 81 mg PO DAILY 09/17/17 [History] Calcium Carbonate [Tums] 1 tab PO BEDTIME PRN 09/17/17 [History] Cholecalciferol (Vitamin D3) [Vitamin D3] 1 tab PO QPM 09/17/17 [History] Fish Oil/DHA/EPA [Fish Oil 1,200 MG] 1,200 mg PO QPM 09/17/17 [History] Flaxseed/Omega3,6,9/Fatty Acid [Flax Seed Oil 1,300 mg Softgel] 1 tab PO DAILY 09/17/17 [History] Lisinopril 20 mg PO BID 09/17/17 [History] Naproxen Sodium [Aleve] 220 mg PO DAILY PRN 09/17/17 [History] Simvastatin [Zocor] 40 mg PO BEDTIME 09/17/17 [History] Ubidecarenone [Co Q-10] 20 mg PO DAILY 09/17/17 [History] Vitamin B Complex & Vit C No.4 [Super B Complex] 1 tab PO DAILY 09/17/17 [ History] hydroCHLOROthiazide [Hydrochlorothiazide] 12.5 mg PO DAILY 09/17/17 [History] metFORMIN HCl [Metformin HCl] 1,000 mg PO BID 09/17/17 [History] Loperamide [Imodium] 2 mg PO Q6H PRN #30 cap 09/18/17 [Rx] Past Medical History HEENT History: Reports: Cataract Cardiovascular History: Reports: High Cholesterol, Hypertension Gastrointestinal History: Reports: GERD VEHICLE CHECK IN CLERK History: Reports: , Other (See Below) Other VEHICLE CHECK IN CLERK History: partial hysterectomy Endocrine/Metabolic History: Reports: Diabetes, Type II, Obesity/BMI 30+ - Infectious Disease History Infectious Disease History: Reports: Chicken Pox - Past Surgical History HEENT Surgical History: Reports: Cataract Surgery, Oral Surgery GI Surgical History: Reports: Cholecystectomy, Hernia, Abdominal Social & Family History - Family History Family Medical History: Noncontributory Cardiac: Reports: Angina, Hypertension - Tobacco Use Smoking Status *Q: Never Smoker - Caffeine Use Caffeine Use: Reports: Tea - Recreational Drug Use Recreational Drug Use: No - Living Situation & Occupation Living situation: Reports: , Alone Occupation: Retired ED ROS GENERAL - Review of Systems Review Of Systems: See Below Constitutional: Reports: Malaise, Weakness, Fatigue. Denies: Fever, Chills HEENT: Reports: No Symptoms Respiratory: Reports: Shortness of Breath. Denies: Wheezing, Cough Cardiovascular: Reports: No Symptoms Endocrine: Reports: No Symptoms GI/Abdominal: Reports: Diarrhea. Denies: Abdominal Pain, Nausea, Vomiting : Reports: No Symptoms Musculoskeletal: Reports: No Symptoms ED EXAM, GENERAL - Physical Exam Exam: See Below Exam Limited By: No Limitations General Appearance: Alert, No Apparent Distress Ears: Normal External Exam Nose: Normal Inspection Head: Atraumatic, Normocephalic Neck: Normal Inspection Respiratory/Chest: No Respiratory Distress, Lungs Clear, Normal Breath Sounds Cardiovascular: Regular Rate, Rhythm, No Edema, No Murmur GI/Abdominal: Soft, Non-Tender, No Organomegaly, No Mass Back Exam: Normal Inspection Extremities: Other (Bilateral leg edema with the righ worse then the left. Ecchymosis to the right thigh and lower leg) EKG INTERPRETATION EKG Date: 09/19/17 Time: 09:20 Rhythm: Other (sinus tachycardia) Rate (Beats/Min): 121 [place]: Normal P-Wave: Present QRS: RBBB ST-T: Depressed (inferior leads and V3) Course - Vital Signs Last Recorded V/S: Last Vital Signs Temp 97.8 F 09/19/17 08:17 Pulse 71 09/19/17 08:17 Resp 16 09/19/17 08:17 BP 128/58 L 09/19/17 08:17 Pulse Ox 100 09/19/17 08:17 - Orders/Labs/Meds Orders: Active Orders 24 hr Category Date Time Status Cardiac Monitoring [RC] . DIRECTED Care 09/19/17 08:55 Active EKG Documentation Completion [RC] ASDIRECTED Care 09/19/17 10:16 Active EKG Documentation Completion [RC] STAT Care 09/19/17 08:56 Active Peripheral IV Care [RC] . DIRECTED Care 09/19/17 08:56 Active CULTURE URINE [RM] Stat Lab 09/19/17 10:55 Received UA W/MICROSCOPIC [URIN] Stat Lab 09/19/17 10:55 Ordered Sodium Chloride 0.9% [Saline Flush] Med 09/19/17 08:55 Active 10 ml FLUSH ASDIRECTED PRN cefTRIAXone [Rocephin] 2 gm Med 09/19/17 11:33 Active Sodium Chloride 0.9% [Normal Saline] 100 ml IV ONETIME Peripheral IV Insertion Adult [OM.PC] Stat Oth 09/19/17 08:55 Ordered EKG 12 Lead [EK] Stat Ther 09/19/17 10:16 Ordered Medication Orders Ceftriaxone Sodium 2 gm/ (Sodium Chloride) 100 mls @ 100 mls/hr IV ONETIME ONE Stop: 09/19/17 12:32 Sodium Chloride (Saline Flush) 10 ml FLUSH ASDIRECTED PRN PRN Reason: Keep Vein Open Last Admin: 09/19/17 08:59 Dose: 10 ml Labs: Laboratory Tests 09/19/17 09/19/17 09/19/17 Range/Units 08:40 08:40 08:40 WBC 9.11 (3.98-10.04) K/mm3 RBC 4.02 (3.98-5.22) M/mm3 Hgb 11.9 (11.2-15.7) gm/L Hct 35.4 (34.1-44.9) % MCV 88.1 (79.4-94.8) fl MCH 29.6 (25.6-32.2) pg MCHC 33.6 (32.2-35.5) g/dl RDW Std Deviation 41.4 (36.4-46.3) fL Plt Count 446 H (182-369) K/mm3 MPV 9.0 L (9.4-12.3) fl Neut % (Auto) 76.7 H (34.0-71.1) % Lymph % (Auto) 13.2 L (19.3-51.7) % [place] % (Auto) 7.9 (4.7-12.5) % Eos % (Auto) 1.6 (0.7-5.8) Baso % (Auto) 0.2 (0.1-1.2) % Neut # (Auto) 6.98 H (1.56-6.13) K/mm3 Lymph # (Auto) 1.20 (1.18-3.74) K/mm3 [place] # (Auto) 0.72 H (0.24-0.36) K/mm3 Eos # (Auto) 0.15 (0.04-0.36) K/mm3 Baso # (Auto) 0.02 (0.01-0.08) K/mm3 PT 10.9 (9.5-12.1) SECONDS INR 1.00 APTT 24 (24-31) SECONDS Sodium 131 L (136-145) mEq/L Potassium 4.4 (3.5-5.1) mEq/L Chloride 96 L (98-107) mEq/L Carbon Dioxide 25 (21-32) mEq/L Anion Gap 14.4 (5-15) BUN 14 (7-18) mg/dL Creatinine 1.0 (0.55-1.02) mg/dL Est Cr Clr Drug Dosing 41.45 mL/min Estimated GFR (MDRD) 53 (>60) mL/min BUN/Creatinine Ratio 14.0 (14-18) Glucose 185 H (83-115) mg/dL Calcium 8.5 (8.5-10.1) mg/dL Total Bilirubin 0.5 (0.2-1.0) mg/dL AST 32 (15-37) U/L ALT 59 (14-59) U/L Alkaline Phosphatase 127 H (46-116) U/L Troponin I < 0.017 (0.00-0.056) ng/mL NT-Pro-B Natriuret Pep (0-450) pg/mL Total Protein 6.4 (6.4-8.2) g/dl Albumin 2.9 L (3.4-5.0) g/dl Globulin 3.5 gm/dL Albumin/Globulin Ratio 0.8 L (1-2) Lipase 112 (73-393) U/L Urine Color (Yellow) Urine Appearance (Clear) Urine pH (5.0-8.0) Ur Specific [place] (1.005-1.030) Urine Protein (Negative) Urine Glucose (UA) (Negative) Urine Ketones (Negative) Urine Occult Blood (Negative) Urine Nitrite (Negative) Urine Bilirubin (Negative) Urine Urobilinogen (0.2-1.0) Ur Leukocyte Esterase (Negative) Urine RBC (0-5) /hpf Urine WBC (0-5) /hpf Ur Epithelial Cells (0-5) /hpf Urine Bacteria (FEW) /hpf Urine Mucus (FEW) /hpf Urine Yeast (Budding) (NOT SEEN) 09/19/17 09/19/17 Range/Units 08:40 10:55 WBC (3.98-10.04) K/mm3 RBC (3.98-5.22) M/mm3 Hgb (11.2-15.7) gm/L Hct (34.1-44.9) % MCV (79.4-94.8) fl MCH (25.6-32.2) pg MCHC (32.2-35.5) g/dl RDW Std Deviation (36.4-46.3) fL Plt Count (182-369) K/mm3 MPV (9.4-12.3) fl Neut % (Auto) (34.0-71.1) % Lymph % (Auto) (19.3-51.7) % [place] % (Auto) (4.7-12.5) % Eos % (Auto) (0.7-5.8) Baso % (Auto) (0.1-1.2) % Neut # (Auto) (1.56-6.13) K/mm3 Lymph # (Auto) (1.18-3.74) K/mm3 [place] # (Auto) (0.24-0.36) K/mm3 Eos # (Auto) (0.04-0.36) K/mm3 Baso # (Auto) (0.01-0.08) K/mm3 PT (9.5-12.1) SECONDS INR APTT (24-31) SECONDS Sodium (136-145) mEq/L Potassium (3.5-5.1) mEq/L Chloride (98-107) mEq/L Carbon Dioxide (21-32) mEq/L Anion Gap (5-15) BUN (7-18) mg/dL Creatinine (0.55-1.02) mg/dL Est Cr Clr Drug Dosing mL/min Estimated GFR (MDRD) (>60) mL/min BUN/Creatinine Ratio (14-18) Glucose (83-115) mg/dL Calcium (8.5-10.1) mg/dL Total Bilirubin (0.2-1.0) mg/dL AST (15-37) U/L ALT (14-59) U/L Alkaline Phosphatase (46-116) U/L Troponin I (0.00-0.056) ng/mL NT-Pro-B Natriuret Pep 128 (0-450) pg/mL Total Protein (6.4-8.2) g/dl Albumin (3.4-5.0) g/dl Globulin gm/dL Albumin/Globulin Ratio (1-2) Lipase (73-393) U/L Urine Color Light yellow (Yellow) Urine Appearance Slt cloudy H (Clear) Urine pH 7.0 (5.0-8.0) Ur Specific [place] 1.015 (1.005-1.030) Urine Protein Trace H (Negative) Urine Glucose (UA) Negative (Negative) Urine Ketones 2+ H (Negative) Urine Occult Blood 1+ H (Negative) Urine Nitrite Negative (Negative) Urine Bilirubin Negative (Negative) Urine Urobilinogen 0.2 (0.2-1.0) Ur Leukocyte Esterase 1+ H (Negative) Urine RBC 0-5 (0-5) /hpf Urine WBC 40-50 H (0-5) /hpf Ur Epithelial Cells 10-20 H (0-5) /hpf Urine Bacteria Many H (FEW) /hpf Urine Mucus Not seen (FEW) /hpf Urine Yeast (Budding) Few H (NOT SEEN) Meds: Medications Generic Name Dose Route Start Last Admin Trade Name Freq PRN Reason Stop Dose Admin Ceftriaxone Sodium 2 gm/ 100 mls @ 100 mls/hr 09/19/17 11:33 Sodium Chloride IV 09/19/17 12:32 ONETIME ONE Sodium Chloride 10 ml 09/19/17 08:55 09/19/17 08:59 Saline Flush FLUSH 10 ml ASDIRECTED PRN Administration Keep Vein Open - Re-Assessments/Exams Free Text/Narrative Re-Assessment/Exam: 09/19/17 11:06 I ordered an IV saline lock, EKG, CXR, labs, and an US of her right leg. Her EKG shows a RBBB with some ST depressions in the inferior leads. Her CXR shows no congestive changes. She has a fractured distal clavicle on the right. Her CBC looks good. Her Na is low at 131. Her glucose is elevated at 185. Her troponin is negative. Her BNP was normal at 128. Her UA shows a UTI. I have ordered urine cultures and I gave he a dose of rocephin 2 grams IV. The US of her right leg shows no DVT. She is still having some diarrhea. I feel she failed outpatient therapy. I called Dr Orozco and she agreed to the admission. 09/19/17 11:44 The patient fell a couple weeks ago and that may be when she hurt her distal clavicle. Departure - Departure Time of Disposition: 11:40 Disposition: Refer to Observation Condition: Good Clinical Impression: Generalized weakness Fall Qualifiers: Encounter type: initial encounter Qualified Code(s): W19.XXXA - Unspecified fall, initial encounter Closed fracture of distal clavicle Qualifiers: Encounter type: initial encounter Fracture alignment: displaced Laterality: right Qualified Code(s): S42.031A - Displaced fracture of lateral end of right clavicle, initial encounter for closed fracture UTI (urinary tract infection) Qualifiers: Urinary tract infection type: site unspecified Hematuria presence: without hematuria Qualified Code(s): N39.0 - Urinary tract infection, site not specified Diarrhea Qualifiers: Diarrhea type: unspecified type Qualified Code(s): R19.7 - Diarrhea, unspecified Dyspnea Qualifiers: Dyspnea type: shortness of breath Qualified Code(s): R06.02 - Shortness of breath; R06.00 - Dyspnea, unspecified; R06.01 - Orthopnea - Discharge Information Referrals: Jasbir Cole Jr, MD [Primary Care Provider] - Forms: ED Department Discharge - My Orders Last 24 Hours: My Active Orders 09/19/17 08:55 Cardiac Monitoring [RC] . DIRECTED Sodium Chloride 0.9% [Saline Flush] 10 ml FLUSH ASDIRECTED PRN Peripheral IV Insertion Adult [OM.PC] Stat 09/19/17 08:56 EKG Documentation Completion [RC] STAT Peripheral IV Care [RC] . DIRECTED 09/19/17 10:16 EKG Documentation Completion [RC] ASDIRECTED EKG 12 Lead [EK] Stat 09/19/17 10:55 CULTURE URINE [RM] Stat UA W/MICROSCOPIC [URIN] Stat 09/19/17 11:33 cefTRIAXone [Rocephin] 2 gm Sodium Chloride 0.9% [Normal Saline] 100 ml IV ONETIME - Assessment/Plan Last 24 Hours: My Active Orders 09/19/17 08:55 Cardiac Monitoring [RC] . DIRECTED Sodium Chloride 0.9% [Saline Flush] 10 ml FLUSH ASDIRECTED PRN Peripheral IV Insertion Adult [OM.PC] Stat 09/19/17 08:56 EKG Documentation Completion [RC] STAT Peripheral IV Care [RC] . DIRECTED 09/19/17 10:16 EKG Documentation Completion [RC] ASDIRECTED EKG 12 Lead [EK] Stat 09/19/17 10:55 CULTURE URINE [RM] Stat UA W/MICROSCOPIC [URIN] Stat 09/19/17 11:33 cefTRIAXone [Rocephin] 2 gm Sodium Chloride 0.9% [Normal Saline] 100 ml IV ONETIME
[2017-09-19] MEDS ORDERED: cefTRIAXone 2 GM in Sodium Chloride 0.9% 100 ML IV ONE (11:33)
[2017-09-19] MEDS ORDERED: Diatrizoate Meglumine/Diatrizoate Sodium 37% 120 ML Bottle PO ONE (13:09)
[2017-09-19] MEDS ORDERED: Iopamidol 612 MG/ML 100 ML Bottle IVPUSH ONE (13:09)
[2017-09-19] MEDS ORDERED: Calcium Carbonate 500 MG Tab.Chew PO PRN (18:30)
[2017-09-19] MEDS ORDERED: Levofloxacin/Dextrose 5%-Water 750 MG in Premix Bag 1 BAG IV SCH (18:30)
[2017-09-19] MEDS ORDERED: 50% Dextrose in Water 50 ML Syringe IVPUSH PRN (18:33)
--- NOTE | 2017-09-19 18:38 | PCM.HP ---
H&P History of Present Illness - General Date of Service: 09/19/17 Admit Problem/Dx: Admission Diagnosis/Problem Admission Diagnosis/Problem UTI, Urinary tract infectious disease Source of Information: Patient, Provider History Limitations: Reports: No Limitations - History of Present Illness Onset of Symptoms: Reports: Sudden Symptom Onset Date: 09/19/17 Duration of Symptoms: Reports: Hour(s):, Getting Worse Location: Reports: Abdomen, Generalized Quality: Reports: Same as Previous Episode Improves with: Reports: Medication Worsens with: Reports: None Associated Symptoms: Reports: Malaise, Nausea/Vomiting, Weakness - Related Data Allergies/Adverse Reactions: Allergies Allergy/AdvReac Type Severity Reaction Status Date / Time No Known Allergies Allergy Verified 09/19/17 08:21 Home Medications: Home Meds Aspirin 81 mg PO DAILY 09/17/17 [History] Calcium Carbonate [Tums] 1 tab PO BEDTIME PRN 09/17/17 [History] Cholecalciferol (Vitamin D3) [Vitamin D3] 1 tab PO QPM 09/17/17 [History] Fish Oil/DHA/EPA [Fish Oil 1,200 MG] 1,200 mg PO QPM 09/17/17 [History] Flaxseed/Omega3,6,9/Fatty Acid [Flax Seed Oil 1,300 mg Softgel] 1 tab PO DAILY 09/17/17 [History] Lisinopril 20 mg PO BID 09/17/17 [History] Naproxen Sodium [Aleve] 220 mg PO DAILY PRN 09/17/17 [History] Simvastatin [Zocor] 40 mg PO BEDTIME 09/17/17 [History] Ubidecarenone [Co Q-10] 20 mg PO DAILY 09/17/17 [History] Vitamin B Complex & Vit C No.4 [Super B Complex] 1 tab PO DAILY 09/17/17 [ History] hydroCHLOROthiazide [Hydrochlorothiazide] 12.5 mg PO DAILY 09/17/17 [History] metFORMIN HCl [Metformin HCl] 1,000 mg PO BID 09/17/17 [History] Loperamide [Imodium] 2 mg PO Q6H PRN #30 cap 09/18/17 [Rx] Past Medical History HEENT History: Reports: Cataract Cardiovascular History: Reports: High Cholesterol, Hypertension Gastrointestinal History: Reports: GERD [employer] History: Reports: , Other (See Below) Other OB/BYN History: partial hysterectomy Endocrine/Metabolic History: Reports: Diabetes, Type II, Obesity/BMI 30+ - Infectious Disease History Infectious Disease History: Reports: Chicken Pox - Past Surgical History HEENT Surgical History: Reports: Cataract Surgery, Oral Surgery GI Surgical History: Reports: Cholecystectomy, Hernia, Abdominal Social & Family History - Family History Family Medical History: Noncontributory Cardiac: Reports: Angina, Hypertension - Tobacco Use Smoking Status *Q: Never Smoker Second Hand Smoke Exposure: No - Caffeine Use Caffeine Use: Reports: Coffee Other Caffeine Use: Multiple cups with every meal - Recreational Drug Use Recreational Drug Use: No - Living Situation & Occupation Living situation: Reports: , Alone Occupation: Retired H&P Review of Systems - Review of Systems: Review Of Systems: See Below General: Reports: Malaise, Weakness HEENT: Reports: No Symptoms Pulmonary: Reports: No Symptoms Cardiovascular: Reports: Lightheadedness Gastrointestinal: Reports: Diarrhea Genitourinary: Reports: No Symptoms Musculoskeletal: Reports: No Symptoms Skin: Reports: No Symptoms Psychiatric: Reports: No Symptoms Neurological: Reports: No Symptoms Hematologic/Lymphatic: Reports: No Symptoms Immunologic: Reports: No Symptoms Exam - Exam Exam: See Below - Vital Signs Vital Signs: Last Vital Signs Temp 36.0 C 09/19/17 14:00 Pulse 67 09/19/17 14:00 Resp 14 09/19/17 14:00 BP 138/75 09/19/17 14:00 Pulse Ox 97 09/19/17 14:00 Weight: 92.896 kg - Exam Quality Assessment: Supplemental Oxygen, DVT Prophylaxis General: Alert, Oriented, Cooperative HEENT: Conjunctiva Clear, Pupils Equal, Pupils Reactive, PERRLA Neck: Trachea Midline Lungs: Normal Respiratory Effort Cardiovascular: Regular Rate, Regular Rhythm GI/Abdominal Exam: Normal Bowel Sounds, Soft, Non-Tender, No Organomegaly, No Distention (Female) Exam: Deferred Rectal (Female) Exam: Deferred Back Exam: Normal Inspection Extremities: Normal Inspection, Normal Capillary Refill Skin: Warm, Dry Neurological: Cranial Nerves Intact Neuro Extensive - Mental Status: Alert, Oriented x3, Normal Mood/Affect, Normal Cognition, Memory Intact Neuro Extensive - Motor, Sensory, Reflexes: CN II-XII Intact Psychiatric: Alert, Normal Affect, Normal Mood - Patient Data Lab Results Last 24 hrs: Laboratory Results - last 24 hr 07/22/18 07/22/18 07/22/18 Range/Units 08:40 08:40 08:40 WBC 9.11 (3.98-10.04) K/mm3 RBC 4.02 (3.98-5.22) M/mm3 Hgb 11.9 (11.2-15.7) gm/L Hct 35.4 (34.1-44.9) % MCV 88.1 (79.4-94.8) fl MCH 29.6 (25.6-32.2) pg MCHC 33.6 (32.2-35.5) g/dl RDW Std Deviation 41.4 (36.4-46.3) fL Plt Count 446 H (182-369) K/mm3 MPV 9.0 L (9.4-12.3) fl Neut % (Auto) 76.7 H (34.0-71.1) % Lymph % (Auto) 13.2 L (19.3-51.7) % [place] % (Auto) 7.9 (4.7-12.5) % Eos % (Auto) 1.6 (0.7-5.8) Baso % (Auto) 0.2 (0.1-1.2) % Neut # (Auto) 6.98 H (1.56-6.13) K/mm3 Lymph # (Auto) 1.20 (1.18-3.74) K/mm3 [place] # (Auto) 0.72 H (0.24-0.36) K/mm3 Eos # (Auto) 0.15 (0.04-0.36) K/mm3 Baso # (Auto) 0.02 (0.01-0.08) K/mm3 PT 10.9 (9.5-12.1) SECONDS INR 1.00 APTT 24 (24-31) SECONDS Sodium 131 L (136-145) mEq/L Potassium 4.4 (3.5-5.1) mEq/L Chloride 96 L (98-107) mEq/L Carbon Dioxide 25 (21-32) mEq/L Anion Gap 14.4 (5-15) BUN 14 (7-18) mg/dL Creatinine 1.0 (0.55-1.02) mg/dL Est Cr Clr Drug Dosing 41.45 mL/min Estimated GFR (MDRD) 53 (>60) mL/min BUN/Creatinine Ratio 14.0 (14-18) Glucose 185 H (83-115) mg/dL Calcium 8.5 (8.5-10.1) mg/dL Total Bilirubin 0.5 (0.2-1.0) mg/dL AST 32 (15-37) U/L ALT 59 (14-59) U/L Alkaline Phosphatase 127 H (46-116) U/L Troponin I < 0.017 (0.00-0.056) ng/mL NT-Pro-B Natriuret Pep (0-450) pg/mL Total Protein 6.4 (6.4-8.2) g/dl Albumin 2.9 L (3.4-5.0) g/dl Globulin 3.5 gm/dL Albumin/Globulin Ratio 0.8 L (1-2) Lipase 112 (73-393) U/L Urine Color (Yellow) Urine Appearance (Clear) Urine pH (5.0-8.0) Ur Specific [place] (1.005-1.030) Urine Protein (Negative) Urine Glucose (UA) (Negative) Urine Ketones (Negative) Urine Occult Blood (Negative) Urine Nitrite (Negative) Urine Bilirubin (Negative) Urine Urobilinogen (0.2-1.0) Ur Leukocyte Esterase (Negative) Urine RBC (0-5) /hpf Urine WBC (0-5) /hpf Ur Epithelial Cells (0-5) /hpf Urine Bacteria (FEW) /hpf Urine Mucus (FEW) /hpf Urine Yeast (Budding) (NOT SEEN) 09/19/17 09/19/17 Range/Units 08:40 10:55 WBC (3.98-10.04) K/mm3 RBC (3.98-5.22) M/mm3 Hgb (11.2-15.7) gm/L Hct (34.1-44.9) % MCV (79.4-94.8) fl MCH (25.6-32.2) pg MCHC (32.2-35.5) g/dl RDW Std Deviation (36.4-46.3) fL Plt Count (182-369) K/mm3 MPV (9.4-12.3) fl Neut % (Auto) (34.0-71.1) % Lymph % (Auto) (19.3-51.7) % [place] % (Auto) (4.7-12.5) % Eos % (Auto) (0.7-5.8) Baso % (Auto) (0.1-1.2) % Neut # (Auto) (1.56-6.13) K/mm3 Lymph # (Auto) (1.18-3.74) K/mm3 [place] # (Auto) (0.24-0.36) K/mm3 Eos # (Auto) (0.04-0.36) K/mm3 Baso # (Auto) (0.01-0.08) K/mm3 PT (9.5-12.1) SECONDS INR APTT (24-31) SECONDS Sodium (136-145) mEq/L Potassium (3.5-5.1) mEq/L Chloride (98-107) mEq/L Carbon Dioxide (21-32) mEq/L Anion Gap (5-15) BUN (7-18) mg/dL Creatinine (0.55-1.02) mg/dL Est Cr Clr Drug Dosing mL/min Estimated GFR (MDRD) (>60) mL/min BUN/Creatinine Ratio (14-18) Glucose (83-115) mg/dL Calcium (8.5-10.1) mg/dL Total Bilirubin (0.2-1.0) mg/dL AST (15-37) U/L ALT (14-59) U/L Alkaline Phosphatase (46-116) U/L Troponin I (0.00-0.056) ng/mL NT-Pro-B Natriuret Pep 128 (0-450) pg/mL Total Protein (6.4-8.2) g/dl Albumin (3.4-5.0) g/dl Globulin gm/dL Albumin/Globulin Ratio (1-2) Lipase (73-393) U/L Urine Color Light yellow (Yellow) Urine Appearance Slt cloudy H (Clear) Urine pH 7.0 (5.0-8.0) Ur Specific [place] 1.015 (1.005-1.030) Urine Protein Trace H (Negative) Urine Glucose (UA) Negative (Negative) Urine Ketones 2+ H (Negative) Urine Occult Blood 1+ H (Negative) Urine Nitrite Negative (Negative) Urine Bilirubin Negative (Negative) Urine Urobilinogen 0.2 (0.2-1.0) Ur Leukocyte Esterase 1+ H (Negative) Urine RBC 0-5 (0-5) /hpf Urine WBC 40-50 H (0-5) /hpf Ur Epithelial Cells 10-20 H (0-5) /hpf Urine Bacteria Many H (FEW) /hpf Urine Mucus Not seen (FEW) /hpf Urine Yeast (Budding) Few H (NOT SEEN) Result Diagrams: 09/20/17 05:40 09/20/17 05:40 Problem List Initiated/Reviewed/Updated: Yes Orders Last 24hrs: Active Orders 24 hr Category Date Time Status Patient Status [ADT] Routine ADT 09/19/17 13:49 Active Blood Glucose Check, Bedside [RC] QIDACANDBED Care 09/19/17 18:33 Active Cardiac Monitoring [RC] . DIRECTED Care 09/19/17 08:55 Active EKG Documentation Completion [RC] ASDIRECTED Care 09/19/17 10:16 Active EKG Documentation Completion [RC] STAT Care 09/19/17 08:56 Active Peripheral IV Care [RC] Q2H Care 09/19/17 08:56 Active Clear Liquid Diet [DIET] Diet 09/19/17 Dinner Active Abdomen Pelvis w Cont [CT] Stat Exams 09/19/17 11:43 Taken Pelvis Non OB Comp [US] Routine Exams 09/19/17 14:30 Taken BASIC METABOLIC PANEL,BMP [CHEM] DAILY Lab 09/20/17 05:00 Ordered BASIC METABOLIC PANEL,BMP [CHEM] DAILY Lab 09/21/17 05:00 Ordered BASIC METABOLIC PANEL,BMP [CHEM] DAILY Lab 09/22/17 05:00 Ordered BASIC METABOLIC PANEL,BMP [CHEM] DAILY Lab 09/23/17 05:00 Ordered C DIFFICILE BY PCR W/NAP1 [MOLEC] Routine Lab 09/20/17 05:00 Ordered CBC WITH AUTO DIFF [HEME] DAILY Lab 09/20/17 05:00 Ordered CBC WITH AUTO DIFF [HEME] DAILY Lab 09/21/17 05:00 Ordered CBC WITH AUTO DIFF [HEME] DAILY Lab 09/22/17 05:00 Ordered CBC WITH AUTO DIFF [HEME] DAILY Lab 09/23/17 05:00 Ordered CRP [C-REACTIVE PROTEIN] [CHEM] DAILY Lab 09/20/17 05:00 Ordered CRP [C-REACTIVE PROTEIN] [CHEM] DAILY Lab 09/21/17 05:00 Ordered CRP [C-REACTIVE PROTEIN] [CHEM] DAILY Lab 09/22/17 05:00 Ordered CRP [C-REACTIVE PROTEIN] [CHEM] DAILY Lab 09/23/17 05:00 Ordered CULTURE STOOL + SHIGATOX [RM] Routine Lab 09/19/17 18:36 Ordered CULTURE URINE [RM] Stat Lab 09/19/17 10:55 Received LACTIC ACID [CHEM] DAILY Lab 09/20/17 05:00 Ordered LACTIC ACID [CHEM] DAILY Lab 09/21/17 05:00 Ordered LACTIC ACID [CHEM] DAILY Lab 09/22/17 05:00 Ordered LACTIC ACID [CHEM] DAILY Lab 09/23/17 05:00 Ordered MAGNESIUM [CHEM] DAILY Lab 09/20/17 05:00 Ordered MAGNESIUM [CHEM] DAILY Lab 09/21/17 05:00 Ordered MAGNESIUM [CHEM] DAILY Lab 09/22/17 05:00 Ordered MAGNESIUM [CHEM] DAILY Lab 09/23/17 05:00 Ordered ROTAVIRUS DIRECT ANTIGEN STOOL [OP] Routine Lab 09/19/17 18:35 Ordered UA W/MICROSCOPIC [URIN] Stat Lab 09/19/17 10:55 Ordered WBC, STOOL [OP] Routine Lab 09/19/17 18:35 Ordered Calcium Carbonate [Tums] Med 09/19/17 18:30 Active 500 mg PO BEDTIME PRN Dextrose 50% in Water Med 09/19/17 18:33 Active 50 ml IVPUSH ASDIRECTED PRN Insulin Aspart [NovoLOG] Med 09/19/17 22:00 Ordered See Protocol SUBCUT QIDACANDBED Levofloxacin/Dextrose 5%-Water [Levaquin in D5W 750 MG/ Med 09/19/17 18:45 Ordered 150 ML] 750 mg Premix Bag 1 bag IV Q24H Pantoprazole [ProTONIX IV] Med 09/19/17 18:45 Ordered 40 mg IVPUSH Q12H Sodium Chloride 0.9% [Normal Saline] 1,000 ml Med 09/19/17 18:45 Ordered IV ASDIRECTED Sodium Chloride 0.9% [Saline Flush] Med 09/19/17 08:55 Active 10 ml FLUSH ASDIRECTED PRN Sodium Chloride 0.9% [Saline Flush] Med 09/19/17 13:09 Active 10 ml FLUSH ONETIME PRN metroNIDAZOLE/Normal Saline [Flagyl 500 MG in NS 100 ML Med 09/19/17 18:45 Ordered ] 500 mg Premix Bag 1 bag IV Q8H Peripheral IV Insertion Adult [OM.PC] Stat Oth 09/19/17 08:55 Ordered Resuscitation Status Routine Resus Stat 09/19/17 15:36 Ordered EKG 12 Lead [EK] Stat Ther 09/19/17 10:16 Ordered Medication Orders Calcium Carbonate/Glycine (Tums) 500 mg PO BEDTIME PRN PRN Reason: ACID REFLUX Dextrose/Water (Dextrose 50% In Water) 50 ml IVPUSH ASDIRECTED PRN PRN Reason: Hypoglycemia Levofloxacin/Dextrose 750 mg/ (Premix) 150 mls @ 100 mls/hr IV Q24H [facility] Metronidazole 500 mg/ Premix 100 mls @ 100 mls/hr IV Q8H [facility] Sodium Chloride (Normal Saline) 1,000 mls @ 100 mls/hr IV ASDIRECTED JANET Insulin Aspart (Novolog) 0 unit SUBCUT QIDACANDBED JANET; Protocol Pantoprazole Sodium (Protonix Iv) 40 mg IVPUSH Q12H [facility] Sodium Chloride (Saline Flush) 10 ml FLUSH ASDIRECTED PRN PRN Reason: Keep Vein Open Last Admin: 09/19/17 08:59 Dose: 10 ml Sodium Chloride (Saline Flush) 10 ml FLUSH ONETIME PRN PRN Reason: IV FLUSH Last Admin: 09/19/17 13:25 Dose: 10 ml Assessment/Plan Comment:: Impression: Acute on chronic diarrhea, NOS CT of abd/pelvis with adenexa mass, left side Pelvic US, pending Nonspecific colitis Palpitations with elevated HR, query paroxysmal SVT Recent Holter Monitor Query UTI Chronic Obese, BMI 31.7 HTN HLD Diabetes Mellitus type 2 Plan: Lopressor BID with parameters Clear liquids Correct electrolytes IVF IV ATBs Proton pump inhibitor Stool studies General surgery consult; 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
[2017-09-19] MEDS: Pantoprazole 40 MG Vial IVPUSH SCH (18:57)
[2017-09-19] MEDS: metroNIDAZOLE/Normal Saline 500 MG in Premix Bag 1 BAG IV SCH (19:01)
[2017-09-19] MEDS: Sodium Chloride 0.9% 1,000 ML IV SCH (21:42)
[2017-09-19] MEDS: Insulin Aspart 100 Units/ML 3 ML Pen SUBCUT SCH (22:24)
[2017-09-20] MEDS: metroNIDAZOLE/Normal Saline 500 MG in Premix Bag 1 BAG IV SCH ×3 (04:02→18:28)
[2017-09-20] MEDS: Pantoprazole 40 MG Vial IVPUSH SCH (06:05)
[2017-09-20] MEDS: Insulin Aspart 100 Units/ML 3 ML Pen SUBCUT SCH ×4 (08:43→21:59)
[2017-09-20] MEDS: Sodium Chloride 0.9% 1,000 ML IV SCH (08:50)
--- NOTE | 2017-09-20 08:52 | US ---
Pelvic ultrasound: Multiple real-time images were obtained transabdominally. Comparison: Prior CT abdomen and pelvis exam performed earlier on the same day (1:21 PM). Uterus not seen compatible with previous hysterectomy. Right ovary is not visualized. Cystic abnormality is seen within the left adnexa or ovary measuring 9.6 x 6.5 x 7.1 cm. This abnormality shows irregular wall thickening as well as internal debris. Impression: 1. Complicated cystic finding within the left pelvis. Differential includes benign as well as lower grade malignant ovarian lesions. Diagnostic code #9 Agree with preliminary report issued by [email or web address] ([facility] report dictated on 09/19/17, 7:08 PM Central Time)
--- NOTE | 2017-09-20 08:52 | CT ---
CT abdomen and pelvis Technique: Multiple axial sections were obtained from above the dome of the diaphragm inferiorly through the pubic symphysis. Intravenous and oral contrast has been given. Delayed images were also obtained through the pelvis. Comparison: No prior abdominal imaging. Findings: Visualized lung bases show nothing acute. Liver contains no focal parenchymal abnormality. Minimal intrahepatic biliary ductal prominence is seen which is felt to be incidental and residual from prior cholecystectomy. Spleen appears within normal limits. Adrenal glands show no nodule. Kidneys contain no abnormal calcifications. Cyst identified within the left kidney measuring approximately 4.4 cm. Pancreas is within normal limits. Aorta shows atherosclerotic change which continues into the iliac vessels. No aneurysm is seen. No retroperitoneal adenopathy or mesenteric abnormalities are seen. Cystic structure is seen within the left side of the pelvis showing some wall thickening. Cystic structure measures about 8.9 cm in greatest measurement. No additional pelvic abnormality is seen. Diffuse colonic wall thickening is identified. Delayed images show contrast within the distal ureters and within the bladder. Bone window settings were reviewed which show scattered degenerative change throughout the spine. Vacuum phenomena seen within multiple apophyseal joints within the lumbar spine as well as vacuum phenomena being seen within the L4-L5 and L5-S1 discs. Impression: 1. Bowel wall thickening throughout the colon compatible with a nonspecific colitis. 2. Cystic structure within the pelvis with wall thickening measuring 8.9 cm. Differential includes benign as well as lower grade malignant adnexal mass. 3. Other incidental findings. Diagnostic code #9 Agree with preliminary report issued by [employer] ([facility] report dictated on 09/19/17, 3:16 PM Central Time)
[2017-09-20] MEDS ORDERED: Magnesium Sulfate/Water 4 GM in Premix Bag 1 BAG IV ONE (10:10)
[2017-09-20] MEDS ORDERED: Pantoprazole 40 MG Tab.CR PO SCH (10:32)
[2017-09-20] MEDS: Enoxaparin 40 MG/0.4 ML Syringe SUBCUT SCH (11:31)
--- NOTE | 2017-09-20 13:07 | PCM.CONSN ---
- General Info Date of Service: 09/20/17 - Patient Data Vitals - Most Recent: Last Vital Signs Temp 97.9 F 09/20/17 12:05 Pulse 77 09/20/17 12:05 Resp 16 09/20/17 12:05 BP 114/56 L 09/20/17 12:05 Pulse Ox 98 09/20/17 12:05 Weight - Most Recent: 91.852 kg I&O - Last 24 Hours: Intake & Output 09/19/17 09/20/17 09/20/17 23:59 07:59 15:59 Intake Total 300 1175 Output Total 1600 Balance 300 -425 Lab Results Last 24 Hours: Laboratory Results - last 24 hr 09/19/17 09/19/17 09/20/17 Range/Units 21:40 22:30 05:40 WBC 8.16 (3.98-10.04) K/mm3 RBC 3.92 L (3.98-5.22) M/mm3 Hgb 11.5 (11.2-15.7) gm/L Hct 34.3 (34.1-44.9) % MCV 87.5 (79.4-94.8) fl MCH 29.3 (25.6-32.2) pg MCHC 33.5 (32.2-35.5) g/dl RDW Std Deviation 41.0 (36.4-46.3) fL Plt Count 378 H (182-369) K/mm3 MPV 8.8 L (9.4-12.3) fl Neut % (Auto) 78.9 H (34.0-71.1) % Lymph % (Auto) 11.3 L (19.3-51.7) % [place] % (Auto) 7.6 (4.7-12.5) % Eos % (Auto) 1.6 (0.7-5.8) Baso % (Auto) 0.2 (0.1-1.2) % Neut # (Auto) 6.44 H (1.56-6.13) K/mm3 Lymph # (Auto) 0.92 L (1.18-3.74) K/mm3 [place] # (Auto) 0.62 H (0.24-0.36) K/mm3 Eos # (Auto) 0.13 (0.04-0.36) K/mm3 Baso # (Auto) 0.02 (0.01-0.08) K/mm3 Sodium (136-145) mEq/L Potassium (3.5-5.1) mEq/L Chloride (98-107) mEq/L Carbon Dioxide (21-32) mEq/L Anion Gap (5-15) BUN (7-18) mg/dL Creatinine (0.55-1.02) mg/dL Est Cr Clr Drug Dosing mL/min Estimated GFR (MDRD) (>60) mL/min BUN/Creatinine Ratio (14-18) Glucose (83-115) mg/dL POC Glucose 174 H (83-110) mg/dL Lactic Acid (0.4-2.0) mmol/L Calcium (8.5-10.1) mg/dL Magnesium (1.8-2.4) mg/dl C-Reactive Protein (<1.0) mg/dL C.difficile [id number]-[id number] Presumptive negative C. difficile Tox (PCR) Negative 09/20/17 09/20/17 09/20/17 Range/Units 05:40 05:40 06:08 WBC (3.98-10.04) K/mm3 RBC (3.98-5.22) M/mm3 Hgb (11.2-15.7) gm/L Hct (34.1-44.9) % MCV (79.4-94.8) fl MCH (25.6-32.2) pg MCHC (32.2-35.5) g/dl RDW Std Deviation (36.4-46.3) fL Plt Count (182-369) K/mm3 MPV (9.4-12.3) fl Neut % (Auto) (34.0-71.1) % Lymph % (Auto) (19.3-51.7) % [place] % (Auto) (4.7-12.5) % Eos % (Auto) (0.7-5.8) Baso % (Auto) (0.1-1.2) % Neut # (Auto) (1.56-6.13) K/mm3 Lymph # (Auto) (1.18-3.74) K/mm3 [place] # (Auto) (0.24-0.36) K/mm3 Eos # (Auto) (0.04-0.36) K/mm3 Baso # (Auto) (0.01-0.08) K/mm3 Sodium 133 L (136-145) mEq/L Potassium 4.1 (3.5-5.1) mEq/L Chloride 100 (98-107) mEq/L Carbon Dioxide 26 (21-32) mEq/L Anion Gap 11.1 (5-15) BUN 8 (7-18) mg/dL Creatinine 0.8 (0.55-1.02) mg/dL Est Cr Clr Drug Dosing 51.81 mL/min Estimated GFR (MDRD) > 60 (>60) mL/min BUN/Creatinine Ratio 10.0 L (14-18) Glucose 168 H (83-115) mg/dL POC Glucose 164 H (83-110) mg/dL Lactic Acid 0.6 (0.4-2.0) mmol/L Calcium 7.9 L (8.5-10.1) mg/dL Magnesium 1.4 L (1.8-2.4) mg/dl C-Reactive Protein 1.6 H* (<1.0) mg/dL C.difficile [id number] C. difficile Tox (PCR) 09/20/17 Range/Units 11:35 WBC (3.98-10.04) K/mm3 RBC (3.98-5.22) M/mm3 Hgb (11.2-15.7) gm/L Hct (34.1-44.9) % MCV (79.4-94.8) fl MCH (25.6-32.2) pg MCHC (32.2-35.5) g/dl RDW Std Deviation (36.4-46.3) fL Plt Count (182-369) K/mm3 MPV (9.4-12.3) fl Neut % (Auto) (34.0-71.1) % Lymph % (Auto) (19.3-51.7) % [place] % (Auto) (4.7-12.5) % Eos % (Auto) (0.7-5.8) Baso % (Auto) (0.1-1.2) % Neut # (Auto) (1.56-6.13) K/mm3 Lymph # (Auto) (1.18-3.74) K/mm3 [place] # (Auto) (0.24-0.36) K/mm3 Eos # (Auto) (0.04-0.36) K/mm3 Baso # (Auto) (0.01-0.08) K/mm3 Sodium (136-145) mEq/L Potassium (3.5-5.1) mEq/L Chloride (98-107) mEq/L Carbon Dioxide (21-32) mEq/L Anion Gap (5-15) BUN (7-18) mg/dL Creatinine (0.55-1.02) mg/dL Est Cr Clr Drug Dosing mL/min Estimated GFR (MDRD) (>60) mL/min BUN/Creatinine Ratio (14-18) Glucose (83-115) mg/dL POC Glucose 151 H (83-110) mg/dL Lactic Acid (0.4-2.0) mmol/L Calcium (8.5-10.1) mg/dL Magnesium (1.8-2.4) mg/dl C-Reactive Protein (<1.0) mg/dL C.difficile [id number] C. difficile Tox (PCR) Bernabe Results Last 24 Hours: Microbiology 09/19/17 22:30 Rotavirus Antigen - Final Stool / Feces - Stool, Aspirate NEGATIVE ROTAVIRUS ANTIGEN Med Orders - Current: Current Medications Calcium Carbonate/Glycine (Tums) 500 mg PO BEDTIME PRN PRN Reason: ACID REFLUX Last Admin: 09/19/17 21:42 Dose: 500 mg Dextrose/Water (Dextrose 50% In Water) 50 ml IVPUSH ASDIRECTED PRN PRN Reason: Hypoglycemia Enoxaparin Sodium (Lovenox) 40 mg SUBCUT Q24H [facility] Last Admin: 09/20/17 11:31 Dose: 40 mg Metronidazole 500 mg/ Premix 100 mls @ 100 mls/hr IV Q8H [facility] Last Admin: 09/20/17 11:31 Dose: 100 mls/hr Sodium Chloride (Normal Saline) 1,000 mls @ 100 mls/hr IV ASDIRECTED [facility] Last Admin: 09/20/17 08:50 Dose: 100 mls/hr Insulin Aspart (Novolog) 0 unit SUBCUT QIDACANDBED [facility]; Protocol Last Admin: 09/20/17 11:36 Dose: 1 unit Pantoprazole Sodium (Protonix) 40 mg PO Q12HR [facility] Sodium Chloride (Saline Flush) 10 ml FLUSH ASDIRECTED PRN PRN Reason: Keep Vein Open Last Admin: 09/19/17 08:59 Dose: 10 ml Sodium Chloride (Saline Flush) 10 ml FLUSH ONETIME PRN PRN Reason: IV FLUSH Last Admin: 09/19/17 13:25 Dose: 10 ml Discontinued Medications Diatrizoate Meglum/Diatrizoate Sod (Gastrografin 37%) 120 ml PO ONETIME ONE Stop: 09/19/17 13:10 Last Admin: 09/19/17 13:25 Dose: 90 ml Ceftriaxone Sodium 2 gm/ (Sodium Chloride) 100 mls @ 100 mls/hr IV ONETIME ONE Stop: 09/19/17 12:32 Last Admin: 09/19/17 12:18 Dose: 100 mls/hr Levofloxacin/Dextrose 750 mg/ (Premix) 150 mls @ 100 mls/hr IV Q49H [facility] Last Admin: 09/19/17 21:41 Dose: 100 mls/hr Levofloxacin/Dextrose 750 mg/ (Premix) 150 mls @ 100 mls/hr IV Q48H [facility] Magnesium Sulfate 4 gm/ Premix 100 mls @ 50 mls/hr IV ONETIME ONE Stop: 09/20/17 12:09 Last Admin: 09/20/17 12:41 Dose: 50 mls/hr Iopamidol (Isovue-300 (61%)) 100 ml IVPUSH ONETIME ONE Stop: 09/19/17 13:10 Last Admin: 09/19/17 13:25 Dose: 100 ml Pantoprazole Sodium (Protonix Iv) 40 mg IVPUSH Q12H [facility] Last Admin: 09/20/17 06:05 Dose: 40 mg Pantoprazole Sodium (Protonix) 40 mg PO Q12H [facility] Last Admin: 09/20/17 11:23 Dose: Not Given Consult PN Assessment/Plan Problem List Initiated/Reviewed/Updated: Yes Plan: surgical consult dicated JORGE
--- NOTE | 2017-09-20 14:01 | PCM.PN ---
- General Info Date of Service: 09/20/17 Functional Status: Reports: Pain Controlled, Tolerating Diet (clear liquids) - Review of Systems General: Reports: Weakness HEENT: Reports: No Symptoms Pulmonary: Reports: No Symptoms Cardiovascular: Reports: No Symptoms Gastrointestinal: Reports: No Symptoms Genitourinary: Reports: No Symptoms Musculoskeletal: Reports: No Symptoms Skin: Reports: No Symptoms Neurological: Reports: No Symptoms Psychiatric: Reports: No Symptoms - Patient Data Vitals - Most Recent: Last Vital Signs Temp 36.6 C 09/20/17 12:05 Pulse 77 09/20/17 12:05 Resp 16 09/20/17 12:05 BP 114/56 L 09/20/17 12:05 Pulse Ox 98 09/20/17 12:05 Weight - Most Recent: 91.852 kg I&O - Last 24 Hours: Intake & Output 09/19/17 09/20/17 09/20/17 22:59 06:59 14:59 Intake Total 300 1175 Output Total 1600 Balance 300 -425 Lab Results Last 24 Hours: Laboratory Results - last 24 hr 09/19/17 09/19/17 09/20/17 Range/Units 21:40 22:30 05:40 WBC 8.16 (3.98-10.04) K/mm3 RBC 3.92 L (3.98-5.22) M/mm3 Hgb 11.5 (11.2-15.7) gm/L Hct 34.3 (34.1-44.9) % MCV 87.5 (79.4-94.8) fl MCH 29.3 (25.6-32.2) pg MCHC 33.5 (32.2-35.5) g/dl RDW Std Deviation 41.0 (36.4-46.3) fL Plt Count 378 H (182-369) K/mm3 MPV 8.8 L (9.4-12.3) fl Neut % (Auto) 78.9 H (34.0-71.1) % Lymph % (Auto) 11.3 L (19.3-51.7) % Henderson % (Auto) 7.6 (4.7-12.5) % Eos % (Auto) 1.6 (0.7-5.8) Baso % (Auto) 0.2 (0.1-1.2) % Neut # (Auto) 6.44 H (1.56-6.13) K/mm3 Lymph # (Auto) 0.92 L (1.18-3.74) K/mm3 Henderson # (Auto) 0.62 H (0.24-0.36) K/mm3 Eos # (Auto) 0.13 (0.04-0.36) K/mm3 Baso # (Auto) 0.02 (0.01-0.08) K/mm3 Sodium (136-145) mEq/L Potassium (3.5-5.1) mEq/L Chloride (98-107) mEq/L Carbon Dioxide (21-32) mEq/L Anion Gap (5-15) BUN (7-18) mg/dL Creatinine (0.55-1.02) mg/dL Est Cr Clr Drug Dosing mL/min Estimated GFR (MDRD) (>60) mL/min BUN/Creatinine Ratio (14-18) Glucose (83-115) mg/dL POC Glucose 174 H (83-110) mg/dL Lactic Acid (0.4-2.0) mmol/L Calcium (8.5-10.1) mg/dL Magnesium (1.8-2.4) mg/dl C-Reactive Protein (<1.0) mg/dL C.difficile [id number] Presumptive negative C. difficile Tox (PCR) Negative 09/20/17 09/20/17 09/20/17 Range/Units 05:40 05:40 06:08 WBC (3.98-10.04) K/mm3 RBC (3.98-5.22) M/mm3 Hgb (11.2-15.7) gm/L Hct (34.1-44.9) % MCV (79.4-94.8) fl MCH (25.6-32.2) pg MCHC (32.2-35.5) g/dl RDW Std Deviation (36.4-46.3) fL Plt Count (182-369) K/mm3 MPV (9.4-12.3) fl Neut % (Auto) (34.0-71.1) % Lymph % (Auto) (19.3-51.7) % Henderson % (Auto) (4.7-12.5) % Eos % (Auto) (0.7-5.8) Baso % (Auto) (0.1-1.2) % Neut # (Auto) (1.56-6.13) K/mm3 Lymph # (Auto) (1.18-3.74) K/mm3 Henderson # (Auto) (0.24-0.36) K/mm3 Eos # (Auto) (0.04-0.36) K/mm3 Baso # (Auto) (0.01-0.08) K/mm3 Sodium 133 L (136-145) mEq/L Potassium 4.1 (3.5-5.1) mEq/L Chloride 100 (98-107) mEq/L Carbon Dioxide 26 (21-32) mEq/L Anion Gap 11.1 (5-15) BUN 8 (7-18) mg/dL Creatinine 0.8 (0.55-1.02) mg/dL Est Cr Clr Drug Dosing 51.81 mL/min Estimated GFR (MDRD) > 60 (>60) mL/min BUN/Creatinine Ratio 10.0 L (14-18) Glucose 168 H (83-115) mg/dL POC Glucose 164 H (83-110) mg/dL Lactic Acid 0.6 (0.4-2.0) mmol/L Calcium 7.9 L (8.5-10.1) mg/dL Magnesium 1.4 L (1.8-2.4) mg/dl C-Reactive Protein 1.6 H* (<1.0) mg/dL C.difficile [id number] C. difficile Tox (PCR) 09/20/17 Range/Units 11:35 WBC (3.98-10.04) K/mm3 RBC (3.98-5.22) M/mm3 Hgb (11.2-15.7) gm/L Hct (34.1-44.9) % MCV (79.4-94.8) fl MCH (25.6-32.2) pg MCHC (32.2-35.5) g/dl RDW Std Deviation (36.4-46.3) fL Plt Count (182-369) K/mm3 MPV (9.4-12.3) fl Neut % (Auto) (34.0-71.1) % Lymph % (Auto) (19.3-51.7) % Henderson % (Auto) (4.7-12.5) % Eos % (Auto) (0.7-5.8) Baso % (Auto) (0.1-1.2) % Neut # (Auto) (1.56-6.13) K/mm3 Lymph # (Auto) (1.18-3.74) K/mm3 Henderson # (Auto) (0.24-0.36) K/mm3 Eos # (Auto) (0.04-0.36) K/mm3 Baso # (Auto) (0.01-0.08) K/mm3 Sodium (136-145) mEq/L Potassium (3.5-5.1) mEq/L Chloride (98-107) mEq/L Carbon Dioxide (21-32) mEq/L Anion Gap (5-15) BUN (7-18) mg/dL Creatinine (0.55-1.02) mg/dL Est Cr Clr Drug Dosing mL/min Estimated GFR (MDRD) (>60) mL/min BUN/Creatinine Ratio (14-18) Glucose (83-115) mg/dL POC Glucose 151 H (83-110) mg/dL Lactic Acid (0.4-2.0) mmol/L Calcium (8.5-10.1) mg/dL Magnesium (1.8-2.4) mg/dl C-Reactive Protein (<1.0) mg/dL C.difficile [id number] C. difficile Tox (PCR) Bernabe Results Last 24 Hours: Microbiology 09/19/17 22:30 Rotavirus Antigen - Final Stool / Feces - Stool, Aspirate NEGATIVE ROTAVIRUS ANTIGEN Med Orders - Current: Current Medications Calcium Carbonate/Glycine (Tums) 500 mg PO BEDTIME PRN PRN Reason: ACID REFLUX Last Admin: 09/19/17 21:42 Dose: 500 mg Dextrose/Water (Dextrose 50% In Water) 50 ml IVPUSH ASDIRECTED PRN PRN Reason: Hypoglycemia Enoxaparin Sodium (Lovenox) 40 mg SUBCUT Q24H [facility] Last Admin: 09/20/17 11:31 Dose: 40 mg Metronidazole 500 mg/ Premix 100 mls @ 100 mls/hr IV Q8H [facility] Last Admin: 09/20/17 11:31 Dose: 100 mls/hr Sodium Chloride (Normal Saline) 1,000 mls @ 100 mls/hr IV ASDIRECTED [facility] Last Admin: 09/20/17 08:50 Dose: 100 mls/hr Insulin Aspart (Novolog) 0 unit SUBCUT QIDACANDBED [facility]; Protocol Last Admin: 09/20/17 11:36 Dose: 1 unit Pantoprazole Sodium (Protonix) 40 mg PO Q12HR [facility] Sodium Chloride (Saline Flush) 10 ml FLUSH ASDIRECTED PRN PRN Reason: Keep Vein Open Last Admin: 09/19/17 08:59 Dose: 10 ml Sodium Chloride (Saline Flush) 10 ml FLUSH ONETIME PRN PRN Reason: IV FLUSH Last Admin: 09/19/17 13:25 Dose: 10 ml Discontinued Medications Diatrizoate Meglum/Diatrizoate Sod (Gastrografin 37%) 120 ml PO ONETIME ONE Stop: 09/19/17 13:10 Last Admin: 09/19/17 13:25 Dose: 90 ml Ceftriaxone Sodium 2 gm/ (Sodium Chloride) 100 mls @ 100 mls/hr IV ONETIME ONE Stop: 09/19/17 12:32 Last Admin: 09/19/17 12:18 Dose: 100 mls/hr Levofloxacin/Dextrose 750 mg/ (Premix) 150 mls @ 100 mls/hr IV Q49H [facility] Last Admin: 09/19/17 21:41 Dose: 100 mls/hr Levofloxacin/Dextrose 750 mg/ (Premix) 150 mls @ 100 mls/hr IV Q48H [facility] Magnesium Sulfate 4 gm/ Premix 100 mls @ 50 mls/hr IV ONETIME ONE Stop: 09/20/17 12:09 Last Admin: 09/20/17 12:41 Dose: 50 mls/hr Iopamidol (Isovue-300 (61%)) 100 ml IVPUSH ONETIME ONE Stop: 09/19/17 13:10 Last Admin: 09/19/17 13:25 Dose: 100 ml Pantoprazole Sodium (Protonix Iv) 40 mg IVPUSH Q12H [facility] Last Admin: 09/20/17 06:05 Dose: 40 mg Pantoprazole Sodium (Protonix) 40 mg PO Q12H [facility] Last Admin: 09/20/17 11:23 Dose: Not Given - Exam Quality Assessment: DVT Prophylaxis General: Alert, Oriented, Cooperative HEENT: Pupils Equal, Pupils Reactive, EOMI Neck: Trachea Midline, No JVD Lungs: Normal Respiratory Effort Cardiovascular: Regular Rate, Regular Rhythm GI/Abdominal Exam: Normal Bowel Sounds, Soft, Non-Tender, No Organomegaly, No Distention (Female) Exam: Deferred Back Exam: Normal Inspection Extremities: Normal Inspection, Non-Tender, Normal Capillary Refill Skin: Warm Neurological: No New Focal Deficit Psy/Mental Status: Alert, Normal Affect, Normal Mood - Problem List Review Problem List Initiated/Reviewed/Updated: Yes - My Orders Last 24 Hours: My Active Orders 09/19/17 18:30 Calcium Carbonate [Tums] 500 mg PO BEDTIME PRN 09/19/17 18:33 Blood Glucose Check, Bedside [RC] QIDACANDBED Dextrose 50% in Water 50 ml IVPUSH ASDIRECTED PRN 09/19/17 18:45 Sodium Chloride 0.9% [Normal Saline] 1,000 ml IV ASDIRECTED 09/19/17 19:00 metroNIDAZOLE/Normal Saline [Flagyl 500 MG in NS 100 ML] 500 mg Premix Bag 1 bag IV Q8H 09/19/17 19:05 Consult to Speech Language Pathology [ALTERNATIVE ENERGY ENGINEER Evaluation and Treatment] [CONS] Routine 09/19/17 19:54 Patient Status [ADT] Routine 09/19/17 22:00 Insulin Aspart [NovoLOG] See Protocol SUBCUT QIDACANDBED 09/19/17 23:13 CULTURE STOOL + SHIGATOX [RM] Routine 09/20/17 01:27 Up With Assistance [RC] ASDIRECTED 09/20/17 11:00 Enoxaparin [Lovenox] 40 mg SUBCUT Q24H 09/20/17 11:23 Consult to Physician [CONS] Routine 09/20/17 11:24 Notify Provider Consults [RC] ASDIRECTED 09/20/17 21:00 Pantoprazole [ProTONIX] 40 mg PO Q12HR 09/21/17 05:00 BASIC METABOLIC PANEL,BMP [CHEM] DAILY CBC WITH AUTO DIFF [HEME] DAILY CRP [C-REACTIVE PROTEIN] [CHEM] DAILY LACTIC ACID [CHEM] DAILY MAGNESIUM [CHEM] DAILY 09/22/17 05:00 BASIC METABOLIC PANEL,BMP [CHEM] DAILY CBC WITH AUTO DIFF [HEME] DAILY CRP [C-REACTIVE PROTEIN] [CHEM] DAILY LACTIC ACID [CHEM] DAILY MAGNESIUM [CHEM] DAILY 09/23/17 05:00 BASIC METABOLIC PANEL,BMP [CHEM] DAILY CBC WITH AUTO DIFF [HEME] DAILY CRP [C-REACTIVE PROTEIN] [CHEM] DAILY LACTIC ACID [CHEM] DAILY MAGNESIUM [CHEM] DAILY - Plan Plan:: Impression: Acute on chronic diarrhea, NOS CT of abd/pelvis with adenexa mass, left side Pelvic US, pending Nonspecific colitis Palpitations with elevated HR, query paroxysmal SVT Recent Holter Monitor Query UTI Chronic Obese, BMI 31.7 HTN HLD Diabetes Mellitus type 2 Plan: Lopressor BID with parameters Clear liquids Correct electrolytes IVF IV ATBs Proton pump inhibitor Stool studies General surgery consult; possible Wet Char Conveyor Tender consult DVT/GI prophylaxis
[2017-09-20] MEDS ORDERED: Metoprolol Tartrate 5 MG/5 ML SDV IVPUSH PRN (18:12)
[2017-09-20] MEDS: Metoprolol Tartrate 25 MG Tab PO SCH (18:35)
[2017-09-20] MEDS: Saccharomyces Boulardii (Probiotic) 250 MG Cap PO SCH (21:49)
[2017-09-20] MEDS: Pantoprazole 40 MG Tab.CR PO SCH (21:50)
[2017-09-21] MEDS: metroNIDAZOLE/Normal Saline 500 MG in Premix Bag 1 BAG IV SCH (03:55)
[2017-09-21] MEDS: Metoprolol Tartrate 25 MG Tab PO SCH ×2 (06:44→17:14)
--- NOTE | 2017-09-21 07:19 | CONS ---
CONSULTING PHYSICIAN: Shree Hernadez MD DATE OF CONSULTATION: 09/20/2017 HISTORY OF PRESENT ILLNESS: This 82-year-old female who has come into the hospital for the 2nd time with falling episodes and palpitations, vomiting, and diarrhea. The patient has been using some [id number] Lomotil. Denies any recent abdominal pain. Evaluation has shown a fracture of the right distal clavicle where there is some ecchymosis and CT scan showed a 9 cm pelvic mass. The patient gives a history of having had in the distance a subtotal hysterectomy in [place] I believe. The patient at the moment does not have any vaginal bleeding or rectal bleeding. Other than loose stools, she has not complained of any weight loss. The patient was seen and admitted to the hospital on 09/17/2017 and discharged and has returned with similar problem. I was asked to see concerning the pelvic mass. LABORATORY DATA: Showed white count of 9, hemoglobin is 8, creatinine is 1, and liver enzymes are normal and estimated glomerular filtration rate is 53. Her C. difficile was negative. PAST MEDICAL HISTORY: Type 2 diabetes, obesity, BMI greater than 30, history of cataract surgery, periumbilical hernia repair, cholecystectomy, and I think she has a family history of hypertension. SOCIAL HISTORY: Never smoked. Never drank. REVIEW OF SYSTEMS: No chest pain, shortness of breath, cough, hoarseness, wheezing, fainting, weakness, numbness, or convulsions. PHYSICAL EXAMINATION: VITAL SIGNS: Temperature is 97, pulse 77, blood pressure 128/60. HEENT: Eyes: Sclerae are white. Extraocular muscle motion normal. Oral cavity: Healthy mucous membrane with mouth and tongue. NECK: Supple. No nodes. No thyromegaly. Trachea midline. LUNGS: Clear. No rales, rhonchi, fremitus, or dullness. HEART: Heart tones regular rate. No S3, S4, jugular venous distention, or murmurs. ABDOMEN: Soft. No tenderness, guarding, rebound, or organomegaly. Lower midline surgical incision and right subcostal surgical incision noted. No masses palpable. MUSCULOSKELETAL: Upper and lower extremities, no angulation deformities. No sensorineural deficit. No tenderness. SKIN: Warm and dry. PSYCHIATRIC: Normal. No sensorineural deficit. NEUROLOGIC: Cranial nerves 3 through 12 intact. ASSESSMENT: Diabetes, history of an arrhythmia, obesity, and fractured clavicle on the right from recent fall and a pelvic mass 9 cm, suspect malignancy. I have discussed this with the patient and recommended that she have surgery at a higher institution of care. Discussed this with the patient, she understands and consents, and wishes to go to [facility]. LUCIAN /[id number]
[2017-09-21] MEDS: Pantoprazole 40 MG Tab.CR PO SCH ×2 (09:47→20:58)
[2017-09-21] MEDS: Insulin Aspart 100 Units/ML 3 ML Pen SUBCUT SCH ×4 (09:47→21:39)
[2017-09-21] MEDS: Saccharomyces Boulardii (Probiotic) 250 MG Cap PO SCH ×2 (09:47→20:57)
[2017-09-21] MEDS: Enoxaparin 40 MG/0.4 ML Syringe SUBCUT SCH (12:01)
--- NOTE | 2017-09-21 12:01 | PCM.PN ---
- General Info Date of Service: 09/21/17 Admission Dx/Problem (Free Text): Admission Diagnosis/Problem Admission Diagnosis/Problem UTI, Urinary tract infectious disease Subjective Update: In to see Lindsey. She is sitting in the chair and very talkative. She appears somewhat anxious but states she does not feel anxious. We discussed her plan of care after discharge. Dr. Hernadez contacted [facility] gynecologic oncology in [place] and they requested we fax everything we have to them at . Candace Lee PA-C has apparently been the point of contact for this. They will then determine a follow-up plan. Dr. Hernadez is suggesting a follow-up within one week if possible. Otherwise she is doing well. Labs and vital signs have been stable. She has grown proteus in her urine however she has gotten some antibiotics here which should cover this. Discussed with Dr. Orozco and we will repeat UA to see if antibiotics were successful. Functional Status: Reports: Pain Controlled, Tolerating Diet, Ambulating, Urinating. Denies: New Symptoms - Review of Systems General: Reports: Weakness (improving ). Denies: Fever, Fatigue, Malaise HEENT: Reports: No Symptoms. Denies: Eye Pain, Sore Throat Pulmonary: Reports: No Symptoms. Denies: Shortness of Breath, Cough, Sputum, Wheezing Cardiovascular: Reports: No Symptoms. Denies: Chest Pain, Palpitations, Dyspnea on Exertion, Edema Gastrointestinal: Reports: No Symptoms. Denies: Abdominal Pain, Constipation, Decreased Appetite, Diarrhea, Nausea, Vomiting Genitourinary: Reports: Frequency. Denies: Dysuria, Burning, Pain, Urgency Musculoskeletal: Reports: No Symptoms Skin: Reports: No Symptoms Neurological: Reports: No Symptoms Psychiatric: Reports: No Symptoms. Denies: Confusion - Patient Data Vitals - Most Recent: Last Vital Signs Temp 98.2 F 09/21/17 03:55 Pulse 68 09/21/17 06:44 Resp 16 09/21/17 03:55 BP 115/73 09/21/17 06:44 Pulse Ox 93 L 09/21/17 06:44 Weight - Most Recent: 205 lb 11.2 oz I&O - Last 24 Hours: Intake & Output 09/20/17 09/21/17 09/21/17 22:59 06:59 14:59 Intake Total 2540 1100 240 Output Total 900 600 Balance 1640 500 240 Lab Results Last 24 Hours: Laboratory Results - last 24 hr 09/20/17 09/20/17 09/21/17 Range/Units 17:09 21:58 06:15 WBC 9.69 (3.98-10.04) K/mm3 RBC 3.91 L (3.98-5.22) M/mm3 Hgb 11.5 (11.2-15.7) gm/L Hct 34.6 (34.1-44.9) % MCV 88.5 (79.4-94.8) fl MCH 29.4 (25.6-32.2) pg MCHC 33.2 (32.2-35.5) g/dl RDW Std Deviation 42.0 (36.4-46.3) fL Plt Count 429 H (182-369) K/mm3 MPV 8.6 L (9.4-12.3) fl Neut % (Auto) 77.4 H (34.0-71.1) % Lymph % (Auto) 14.1 L (19.3-51.7) % Barren % (Auto) 6.0 (4.7-12.5) % Eos % (Auto) 2.1 (0.7-5.8) Baso % (Auto) 0.2 (0.1-1.2) % Neut # (Auto) 7.50 H (1.56-6.13) K/mm3 Lymph # (Auto) 1.37 (1.18-3.74) K/mm3 Barren # (Auto) 0.58 H (0.24-0.36) K/mm3 Eos # (Auto) 0.20 (0.04-0.36) K/mm3 Baso # (Auto) 0.02 (0.01-0.08) K/mm3 Sodium (136-145) mEq/L Potassium (3.5-5.1) mEq/L Chloride (98-107) mEq/L Carbon Dioxide (21-32) mEq/L Anion Gap (5-15) BUN (7-18) mg/dL Creatinine (0.55-1.02) mg/dL Est Cr Clr Drug Dosing mL/min Estimated GFR (MDRD) (>60) mL/min BUN/Creatinine Ratio (14-18) Glucose (83-115) mg/dL POC Glucose 162 H 196 H (83-110) mg/dL Lactic Acid (0.4-2.0) mmol/L Calcium (8.5-10.1) mg/dL Magnesium (1.8-2.4) mg/dl C-Reactive Protein (<1.0) mg/dL 09/21/17 09/21/17 09/21/17 Range/Units 06:15 06:15 06:41 WBC (3.98-10.04) K/mm3 RBC (3.98-5.22) M/mm3 Hgb (11.2-15.7) gm/L Hct (34.1-44.9) % MCV (79.4-94.8) fl MCH (25.6-32.2) pg MCHC (32.2-35.5) g/dl RDW Std Deviation (36.4-46.3) fL Plt Count (182-369) K/mm3 MPV (9.4-12.3) fl Neut % (Auto) (34.0-71.1) % Lymph % (Auto) (19.3-51.7) % Barren % (Auto) (4.7-12.5) % Eos % (Auto) (0.7-5.8) Baso % (Auto) (0.1-1.2) % Neut # (Auto) (1.56-6.13) K/mm3 Lymph # (Auto) (1.18-3.74) K/mm3 Barren # (Auto) (0.24-0.36) K/mm3 Eos # (Auto) (0.04-0.36) K/mm3 Baso # (Auto) (0.01-0.08) K/mm3 Sodium 135 L (136-145) mEq/L Potassium 3.9 (3.5-5.1) mEq/L Chloride 102 (98-107) mEq/L Carbon Dioxide 27 (21-32) mEq/L Anion Gap 9.9 (5-15) BUN 7 (7-18) mg/dL Creatinine 0.7 (0.55-1.02) mg/dL Est Cr Clr Drug Dosing 59.22 mL/min Estimated GFR (MDRD) > 60 (>60) mL/min BUN/Creatinine Ratio 10.0 L (14-18) Glucose 171 H (83-115) mg/dL POC Glucose 152 H (83-110) mg/dL Lactic Acid 0.8 (0.4-2.0) mmol/L Calcium 8.1 L (8.5-10.1) mg/dL Magnesium 1.8 (1.8-2.4) mg/dl C-Reactive Protein 1.1 H* (<1.0) mg/dL Bernabe Results Last 24 Hours: Microbiology 09/19/17 10:55 Urine Culture - Preliminary Urine, Bladder Gram Negative Rods 09/19/17 23:13 Stool Culture - Preliminary Stool / Feces - Stool, Aspirate - Final - Final Med Orders - Current: Current Medications Calcium Carbonate/Glycine (Tums) 500 mg PO BEDTIME PRN PRN Reason: ACID REFLUX Last Admin: 09/19/17 21:42 Dose: 500 mg Dextrose/Water (Dextrose 50% In Water) 50 ml IVPUSH ASDIRECTED PRN PRN Reason: Hypoglycemia Enoxaparin Sodium (Lovenox) 40 mg SUBCUT Q24H [facility] Last Admin: 09/20/17 11:31 Dose: 40 mg Insulin Aspart (Novolog) 0 unit SUBCUT QIDACANDBED [facility]; Protocol Last Admin: 09/21/17 09:47 Dose: 1 unit Metformin HCl (Glucophage) 750 mg PO BIDCOALS [facility] Metoprolol Tartrate (Lopressor) 5 mg IVPUSH Q6H PRN PRN Reason: HR>120 Metoprolol Tartrate (Lopressor) 12.5 mg PO Q12H [facility] Last Admin: 09/21/17 06:44 Dose: Not Given Pantoprazole Sodium (Protonix) 40 mg PO Q12HR [facility] Last Admin: 09/21/17 09:47 Dose: 40 mg Saccharomyces Boulardii (Florastor) 250 mg PO BID [facility] Last Admin: 09/21/17 09:47 Dose: 250 mg Sodium Chloride (Saline Flush) 10 ml FLUSH ASDIRECTED PRN PRN Reason: Keep Vein Open Last Admin: 09/19/17 08:59 Dose: 10 ml Sodium Chloride (Saline Flush) 10 ml FLUSH ONETIME PRN PRN Reason: IV FLUSH Last Admin: 09/19/17 13:25 Dose: 10 ml Discontinued Medications Diatrizoate Meglum/Diatrizoate Sod (Gastrografin 37%) 120 ml PO ONETIME ONE Stop: 09/19/17 13:10 Last Admin: 09/19/17 13:25 Dose: 90 ml Ceftriaxone Sodium 2 gm/ (Sodium Chloride) 100 mls @ 100 mls/hr IV ONETIME ONE Stop: 09/19/17 12:32 Last Admin: 09/19/17 12:18 Dose: 100 mls/hr Levofloxacin/Dextrose 750 mg/ (Premix) 150 mls @ 100 mls/hr IV Q49H [facility] Last Admin: 09/19/17 21:41 Dose: 100 mls/hr Metronidazole 500 mg/ Premix 100 mls @ 100 mls/hr IV Q8H [facility] Last Admin: 09/21/17 03:55 Dose: 100 mls/hr Sodium Chloride (Normal Saline) 1,000 mls @ 100 mls/hr IV ASDIRECTED [facility] Last Admin: 09/20/17 08:50 Dose: 100 mls/hr Levofloxacin/Dextrose 750 mg/ (Premix) 150 mls @ 100 mls/hr IV Q48H [facility] Magnesium Sulfate 4 gm/ Premix 100 mls @ 50 mls/hr IV ONETIME ONE Stop: 09/20/17 12:09 Last Admin: 09/20/17 12:41 Dose: 50 mls/hr Iopamidol (Isovue-300 (61%)) 100 ml IVPUSH ONETIME ONE Stop: 09/19/17 13:10 Last Admin: 09/19/17 13:25 Dose: 100 ml Pantoprazole Sodium (Protonix Iv) 40 mg IVPUSH Q12H [facility] Last Admin: 09/20/17 06:05 Dose: 40 mg Pantoprazole Sodium (Protonix) 40 mg PO Q12H [facility] Last Admin: 09/20/17 11:23 Dose: Not Given - Exam Quality Assessment: DVT Prophylaxis General: Alert, Oriented, Cooperative, No Acute Distress HEENT: Pupils Equal, Pupils Reactive, EOMI, Mucous Membr. Moist/[place] Neck: Supple, Trachea Midline, No JVD Lungs: Clear to Auscultation, Normal Respiratory Effort Cardiovascular: Regular Rate, Regular Rhythm, No Murmurs GI/Abdominal Exam: Normal Bowel Sounds, Soft, Non-Tender, No Distention, No Abnormal Bruit, Pelvis Stable (Female) Exam: Deferred Back Exam: Normal Inspection, Full Range of Motion Extremities: Normal Inspection, Normal Range of Motion, Non-Tender, No Pedal Edema, Normal Capillary Refill Peripheral Pulses: 1+: Posterior Tibial (L), Posterior Tibial (R), Dorsalis Pedis (L), Dorsalis Pedis (R), 2+: Radial (L), Radial (R) Skin: Warm, Dry, Intact Neurological: No New Focal Deficit Psy/Mental Status: Alert, Normal Affect, Normal Mood - Problem List & Annotations (1) Fall SNOMED Code(s): 5394975, 829878251 Code(s): W19.XXXA - UNSPECIFIED FALL, INITIAL ENCOUNTER Status: Acute Priority: High Current Visit: Yes Qualifiers: Encounter type: initial encounter Qualified Code(s): W19.XXXA - Unspecified fall, initial encounter (2) Generalized weakness SNOMED Code(s): 92803555 Code(s): R53.1 - WEAKNESS Status: Acute Priority: High Current Visit: Yes (3) UTI (urinary tract infection) SNOMED Code(s): 65662484 Code(s): N39.0 - URINARY TRACT INFECTION, SITE NOT SPECIFIED Status: Acute Priority: High Current Visit: Yes Qualifiers: Urinary tract infection type: site unspecified Hematuria presence: without hematuria Qualified Code(s): N39.0 - Urinary tract infection, site not specified (4) Paroxysmal SVT (supraventricular tachycardia) SNOMED Code(s): 16424895 Code(s): I47.1 - SUPRAVENTRICULAR TACHYCARDIA Status: Acute Priority: High Current Visit: No (5) HTN (hypertension) SNOMED Code(s): 87640974 Code(s): I10 - ESSENTIAL (PRIMARY) HYPERTENSION Status: Chronic Priority : Medium Current Visit: No Qualifiers: Hypertension type: unspecified Qualified Code(s): I10 - Essential (primary ) hypertension (6) HLD (hyperlipidemia) SNOMED Code(s): 99987189 Code(s): E78.5 - HYPERLIPIDEMIA, UNSPECIFIED Status: Chronic Priority: Medium Current Visit: No Qualifiers: Hyperlipidemia type: unspecified Qualified Code(s): E78.5 - Hyperlipidemia , unspecified (7) Type II diabetes mellitus SNOMED Code(s): 10026922 Code(s): E11.9 - TYPE 2 DIABETES MELLITUS WITHOUT COMPLICATIONS Status: Chronic Priority: Medium Current Visit: No Qualifiers: Diabetes mellitus radiographer cardiac catheterization insulin use: unspecified jail insulin use status Diabetes mellitus complication status: with unspecified complications Qualified Code(s): E11.8 - Type 2 diabetes mellitus with unspecified complications - Problem List Review Problem List Initiated/Reviewed/Updated: Yes - My Orders Last 24 Hours: My Active Orders 09/21/17 11:57 Consult to Physician [CONS] Routine 09/21/17 11:58 Notify Provider Consults [RC] ASDIRECTED - Plan Plan:: Impression: Acute on chronic diarrhea, NOS--> resolved CT of abd/pelvis with adenexa mass, left side Pelvic US - Complicated cystic findings within left pelvis; differential includes benign as well as lower grade malignant ovarian lesions Nonspecific colitis Palpitations with elevated HR, query paroxysmal SVT Recent Holter Monitor Query UTI -> Proteus; repeat UA Chronic Obese, BMI 31.7 HTN HLD Diabetes Mellitus type 2 Plan: Lopressor BID with parameters Clear liquids-> advance to ADA diet Correct electrolytes IVF IV ATBs -> stopped Repeat UA Proton pump inhibitor Stool studies-> negative thus far General surgery consult; possible [employer] consult -> Candace Felix PA-C with Gynecologic Oncology DVT/GI prophylaxis
[2017-09-21] MEDS ORDERED: hydrALAZINE 20 MG/ML SDV IVPUSH PRN (14:03)
[2017-09-21] MEDS ORDERED: Temazepam 7.5 MG Cap PO PRN (15:37)
[2017-09-21] MEDS: metFORMIN 500 MG Tab PO SCH (17:13)
[2017-09-21] MEDS ORDERED: Levofloxacin/Dextrose 5%-Water 750 MG in Premix Bag 1 BAG IV SCH (18:30)
[2017-09-22] MEDS: Metoprolol Tartrate 25 MG Tab PO SCH ×2 (06:33→17:00)
[2017-09-22] MEDS: metFORMIN 500 MG Tab PO SCH ×2 (06:34→16:54)
[2017-09-22] MEDS: Pantoprazole 40 MG Tab.CR PO SCH ×2 (08:38→20:47)
[2017-09-22] MEDS: Insulin Aspart 100 Units/ML 3 ML Pen SUBCUT SCH ×4 (08:38→21:04)
[2017-09-22] MEDS: Saccharomyces Boulardii (Probiotic) 250 MG Cap PO SCH ×2 (08:38→20:47)
[2017-09-22] MEDS ORDERED: Magnesium Sulfate/Water 4 GM in Premix Bag 1 BAG IV ONE (08:53)
--- NOTE | 2017-09-22 10:02 | PCM.PN ---
- General Info Date of Service: 09/22/17 Admission Dx/Problem (Free Text): Admission Diagnosis/Problem Admission Diagnosis/Problem UTI, Urinary tract infectious disease Subjective Update: In to see Lindsey. She is sitting up in the chair eating lunch. She reports she is still having loose stools but they are infrequent. Her Hgb dropped today to 10.7. Will order occult stool and recheck Hgb tomorrow. She says she slept very well. She is quite talkative and has no complaints or concerns. Updated her and her son on rounding about plan for discharge and how we are waiting to hear back from [facility]. No nursing concerns. Plan is for discharge tomorrow. Functional Status: Reports: Pain Controlled, Tolerating Diet, Ambulating, Urinating. Denies: New Symptoms - Review of Systems General: Reports: Weakness (improving ). Denies: Fever, Fatigue, Malaise, Chills HEENT: Reports: No Symptoms. Denies: Eye Pain, Sore Throat Pulmonary: Reports: No Symptoms. Denies: Shortness of Breath, Cough, Sputum, Wheezing Cardiovascular: Reports: No Symptoms. Denies: Chest Pain, Palpitations, Dyspnea on Exertion, Edema Gastrointestinal: Reports: Other (occasional loose stools ). Denies: Abdominal Pain, Constipation, Diarrhea, Nausea, Vomiting Genitourinary: Reports: No Symptoms Musculoskeletal: Reports: No Symptoms Skin: Reports: No Symptoms Neurological: Reports: No Symptoms. Denies: Confusion Psychiatric: Reports: Anxiety. Denies: Confusion, Depression - Patient Data Vitals - Most Recent: Last Vital Signs Temp 97.2 F 09/22/17 07:58 Pulse 70 09/22/17 07:58 Resp 16 09/22/17 07:58 BP 110/79 09/22/17 07:58 Pulse Ox 97 09/22/17 07:58 Weight - Most Recent: 207 lb 14.4 oz I&O - Last 24 Hours: Intake & Output 09/21/17 09/22/17 09/22/17 22:59 06:59 14:59 Intake Total 1040 1000 300 Output Total 700 600 Balance 340 400 300 Lab Results Last 24 Hours: Laboratory Results - last 24 hr 09/21/17 09/21/17 09/21/17 Range/Units 13:08 14:55 16:49 WBC (3.98-10.04) K/mm3 RBC (3.98-5.22) M/mm3 Hgb (11.2-15.7) gm/L Hct (34.1-44.9) % MCV (79.4-94.8) fl MCH (25.6-32.2) pg MCHC (32.2-35.5) g/dl RDW Std Deviation (36.4-46.3) fL Plt Count (182-369) K/mm3 MPV (9.4-12.3) fl Neut % (Auto) (34.0-71.1) % Lymph % (Auto) (19.3-51.7) % [place] % (Auto) (4.7-12.5) % Eos % (Auto) (0.7-5.8) Baso % (Auto) (0.1-1.2) % Neut # (Auto) (1.56-6.13) K/mm3 Lymph # (Auto) (1.18-3.74) K/mm3 [place] # (Auto) (0.24-0.36) K/mm3 Eos # (Auto) (0.04-0.36) K/mm3 Baso # (Auto) (0.01-0.08) K/mm3 Sodium (136-145) mEq/L Potassium (3.5-5.1) mEq/L Chloride (98-107) mEq/L Carbon Dioxide (21-32) mEq/L Anion Gap (5-15) BUN (7-18) mg/dL Creatinine (0.55-1.02) mg/dL Est Cr Clr Drug Dosing mL/min Estimated GFR (MDRD) (>60) mL/min BUN/Creatinine Ratio (14-18) Glucose (83-115) mg/dL POC Glucose 196 H 152 H (83-110) mg/dL Lactic Acid (0.4-2.0) mmol/L Calcium (8.5-10.1) mg/dL Magnesium (1.8-2.4) mg/dl C-Reactive Protein (<1.0) mg/dL Urine Color Yellow (Yellow) Urine Appearance Clear (Clear) Urine pH 6.5 (5.0-8.0) Ur Specific [place] 1.025 (1.005-1.030) Urine Protein 1+ H (Negative) Urine Glucose (UA) Trace H (Negative) Urine Ketones 2+ H (Negative) Urine Occult Blood Trace-intact H (Negative) Urine Nitrite Negative (Negative) Urine Bilirubin 1+ H (Negative) Urine Urobilinogen 0.2 (0.2-1.0) Ur Leukocyte Esterase Negative (Negative) Urine RBC 0-5 (0-5) /hpf Urine WBC 0-5 (0-5) /hpf Ur Epithelial Cells 0-5 (0-5) /hpf Urine Bacteria Few (FEW) /hpf Urine Mucus Few (FEW) /hpf 09/21/17 09/22/17 09/22/17 Range/Units 21:37 05:45 05:45 WBC 9.30 (3.98-10.04) K/mm3 RBC 3.68 L (3.98-5.22) M/mm3 Hgb 10.7 L (11.2-15.7) gm/L Hct 32.6 L (34.1-44.9) % MCV 88.6 (79.4-94.8) fl MCH 29.1 (25.6-32.2) pg MCHC 32.8 (32.2-35.5) g/dl RDW Std Deviation 42.3 (36.4-46.3) fL Plt Count 414 H (182-369) K/mm3 MPV 8.9 L (9.4-12.3) fl Neut % (Auto) 74.3 H (34.0-71.1) % Lymph % (Auto) 16.1 L (19.3-51.7) % [place] % (Auto) 6.8 (4.7-12.5) % Eos % (Auto) 2.3 (0.7-5.8) Baso % (Auto) 0.1 (0.1-1.2) % Neut # (Auto) 6.91 H (1.56-6.13) K/mm3 Lymph # (Auto) 1.50 (1.18-3.74) K/mm3 [place] # (Auto) 0.63 H (0.24-0.36) K/mm3 Eos # (Auto) 0.21 (0.04-0.36) K/mm3 Baso # (Auto) 0.01 (0.01-0.08) K/mm3 Sodium 134 L (136-145) mEq/L Potassium 3.8 (3.5-5.1) mEq/L Chloride 101 (98-107) mEq/L Carbon Dioxide 25 (21-32) mEq/L Anion Gap 11.8 (5-15) BUN 10 (7-18) mg/dL Creatinine 0.7 (0.55-1.02) mg/dL Est Cr Clr Drug Dosing 59.22 mL/min Estimated GFR (MDRD) > 60 (>60) mL/min BUN/Creatinine Ratio 14.3 (14-18) Glucose 165 H (83-115) mg/dL POC Glucose 161 H (83-110) mg/dL Lactic Acid (0.4-2.0) mmol/L Calcium 7.8 L (8.5-10.1) mg/dL Magnesium 1.4 L (1.8-2.4) mg/dl C-Reactive Protein 0.5 (<1.0) mg/dL Urine Color (Yellow) Urine Appearance (Clear) Urine pH (5.0-8.0) Ur Specific [place] (1.005-1.030) Urine Protein (Negative) Urine Glucose (UA) (Negative) Urine Ketones (Negative) Urine Occult Blood (Negative) Urine Nitrite (Negative) Urine Bilirubin (Negative) Urine Urobilinogen (0.2-1.0) Ur Leukocyte Esterase (Negative) Urine RBC (0-5) /hpf Urine WBC (0-5) /hpf Ur Epithelial Cells (0-5) /hpf Urine Bacteria (FEW) /hpf Urine Mucus (FEW) /hpf 09/22/17 09/22/17 Range/Units 05:45 06:32 WBC (3.98-10.04) K/mm3 RBC (3.98-5.22) M/mm3 Hgb (11.2-15.7) gm/L Hct (34.1-44.9) % MCV (79.4-94.8) fl MCH (25.6-32.2) pg MCHC (32.2-35.5) g/dl RDW Std Deviation (36.4-46.3) fL Plt Count (182-369) K/mm3 MPV (9.4-12.3) fl Neut % (Auto) (34.0-71.1) % Lymph % (Auto) (19.3-51.7) % [place] % (Auto) (4.7-12.5) % Eos % (Auto) (0.7-5.8) Baso % (Auto) (0.1-1.2) % Neut # (Auto) (1.56-6.13) K/mm3 Lymph # (Auto) (1.18-3.74) K/mm3 [place] # (Auto) (0.24-0.36) K/mm3 Eos # (Auto) (0.04-0.36) K/mm3 Baso # (Auto) (0.01-0.08) K/mm3 Sodium (136-145) mEq/L Potassium (3.5-5.1) mEq/L Chloride (98-107) mEq/L Carbon Dioxide (21-32) mEq/L Anion Gap (5-15) BUN (7-18) mg/dL Creatinine (0.55-1.02) mg/dL Est Cr Clr Drug Dosing mL/min Estimated GFR (MDRD) (>60) mL/min BUN/Creatinine Ratio (14-18) Glucose (83-115) mg/dL POC Glucose 158 H (83-110) mg/dL Lactic Acid 0.7 (0.4-2.0) mmol/L Calcium (8.5-10.1) mg/dL Magnesium (1.8-2.4) mg/dl C-Reactive Protein (<1.0) mg/dL Urine Color (Yellow) Urine Appearance (Clear) Urine pH (5.0-8.0) Ur Specific [place] (1.005-1.030) Urine Protein (Negative) Urine Glucose (UA) (Negative) Urine Ketones (Negative) Urine Occult Blood (Negative) Urine Nitrite (Negative) Urine Bilirubin (Negative) Urine Urobilinogen (0.2-1.0) Ur Leukocyte Esterase (Negative) Urine RBC (0-5) /hpf Urine WBC (0-5) /hpf Ur Epithelial Cells (0-5) /hpf Urine Bacteria (FEW) /hpf Urine Mucus (FEW) /hpf Bernabe Results Last 24 Hours: Microbiology 09/19/17 10:55 Urine Culture - Final Urine, Bladder Proteus Mirabilis 09/19/17 23:13 Stool Culture - Preliminary Stool / Feces - Stool, Aspirate - Final - Final Med Orders - Current: Current Medications Calcium Carbonate/Glycine (Tums) 500 mg PO BEDTIME PRN PRN Reason: ACID REFLUX Last Admin: 09/19/17 21:42 Dose: 500 mg Dextrose/Water (Dextrose 50% In Water) 50 ml IVPUSH ASDIRECTED PRN PRN Reason: Hypoglycemia Enoxaparin Sodium (Lovenox) 40 mg SUBCUT Q24H [facility] Last Admin: 09/21/17 12:01 Dose: 40 mg Hydralazine HCl (Apresoline) 20 mg IVPUSH Q4H PRN PRN Reason: Hypertension Insulin Aspart (Novolog) 0 unit SUBCUT QIDACANDBED [facility]; Protocol Last Admin: 09/22/17 08:38 Dose: 1 unit Metformin HCl (Glucophage) 750 mg PO BIDMEALS [facility] Last Admin: 09/22/17 06:34 Dose: 750 mg Metoprolol Tartrate (Lopressor) 5 mg IVPUSH Q6H PRN PRN Reason: HR>120 Metoprolol Tartrate (Lopressor) 12.5 mg PO Q12H [facility] Last Admin: 09/22/17 06:33 Dose: Not Given Pantoprazole Sodium (Protonix) 40 mg PO Q12HR [facility] Last Admin: 09/22/17 08:38 Dose: 40 mg Saccharomyces Boulardii (Florastor) 250 mg PO BID [facility] Last Admin: 09/22/17 08:38 Dose: 250 mg Sodium Chloride (Saline Flush) 10 ml FLUSH ASDIRECTED PRN PRN Reason: Keep Vein Open Last Admin: 09/19/17 08:59 Dose: 10 ml Sodium Chloride (Saline Flush) 10 ml FLUSH ONETIME PRN PRN Reason: IV FLUSH Last Admin: 09/19/17 13:25 Dose: 10 ml Temazepam (Restoril) 7.5 mg PO BEDTIME PRN PRN Reason: Insomnia Discontinued Medications Diatrizoate Meglum/Diatrizoate Sod (Gastrografin 37%) 120 ml PO ONETIME ONE Stop: 09/19/17 13:10 Last Admin: 09/19/17 13:25 Dose: 90 ml Ceftriaxone Sodium 2 gm/ (Sodium Chloride) 100 mls @ 100 mls/hr IV ONETIME ONE Stop: 09/19/17 12:32 Last Admin: 09/19/17 12:18 Dose: 100 mls/hr Levofloxacin/Dextrose 750 mg/ (Premix) 150 mls @ 100 mls/hr IV Q49H [facility] Last Admin: 09/19/17 21:41 Dose: 100 mls/hr Metronidazole 500 mg/ Premix 100 mls @ 100 mls/hr IV Q8H [facility] Last Admin: 09/21/17 03:55 Dose: 100 mls/hr Sodium Chloride (Normal Saline) 1,000 mls @ 100 mls/hr IV ASDIRECTED [facility] Last Admin: 09/20/17 08:50 Dose: 100 mls/hr Levofloxacin/Dextrose 750 mg/ (Premix) 150 mls @ 100 mls/hr IV Q48H [facility] Magnesium Sulfate 4 gm/ Premix 100 mls @ 50 mls/hr IV ONETIME ONE Stop: 09/20/17 12:09 Last Admin: 09/20/17 12:41 Dose: 50 mls/hr Magnesium Sulfate 4 gm/ Premix 100 mls @ 25 mls/hr IV ONETIME ONE Stop: 09/22/17 08:54 Last Admin: 09/22/17 09:38 Dose: 25 mls/hr Iopamidol (Isovue-300 (61%)) 100 ml IVPUSH ONETIME ONE Stop: 09/19/17 13:10 Last Admin: 09/19/17 13:25 Dose: 100 ml Pantoprazole Sodium (Protonix Iv) 40 mg IVPUSH Q12H [facility] Last Admin: 09/20/17 06:05 Dose: 40 mg Pantoprazole Sodium (Protonix) 40 mg PO Q12H [facility] Last Admin: 09/20/17 11:23 Dose: Not Given - Exam Quality Assessment: DVT Prophylaxis General: Alert, Oriented, Cooperative, No Acute Distress HEENT: Pupils Equal, Pupils Reactive, EOMI, Mucous Membr. Moist/[place] Neck: Supple, Trachea Midline, No JVD Lungs: Clear to Auscultation, Normal Respiratory Effort Cardiovascular: Regular Rate, Regular Rhythm GI/Abdominal Exam: Normal Bowel Sounds, Soft, Non-Tender, No Distention, No Abnormal Bruit, No Mass (Female) Exam: Deferred Back Exam: Normal Inspection, Full Range of Motion Extremities: Normal Inspection, Normal Range of Motion, Non-Tender, No Pedal Edema, Normal Capillary Refill Peripheral Pulses: 2+: Radial (L), Radial (R), Posterior Tibial (L), Posterior Tibial (R), Dorsalis Pedis (L), Dorsalis Pedis (R) Skin: Warm, Dry, Intact Neurological: No New Focal Deficit Psy/Mental Status: Alert, Normal Affect, Normal Mood - Problem List & Annotations (1) Fall SNOMED Code(s): 9749694, 058079638 Code(s): W19.XXXA - UNSPECIFIED FALL, INITIAL ENCOUNTER Status: Acute Priority: High Current Visit: Yes Qualifiers: Encounter type: initial encounter Qualified Code(s): W19.XXXA - Unspecified fall, initial encounter (2) Generalized weakness SNOMED Code(s): 34658909 Code(s): R53.1 - WEAKNESS Status: Acute Priority: High Current Visit: Yes (3) UTI (urinary tract infection) SNOMED Code(s): 69099683 Code(s): N39.0 - URINARY TRACT INFECTION, SITE NOT SPECIFIED Status: Acute Priority: High Current Visit: Yes Qualifiers: Urinary tract infection type: site unspecified Hematuria presence: without hematuria Qualified Code(s): N39.0 - Urinary tract infection, site not specified (4) Paroxysmal SVT (supraventricular tachycardia) SNOMED Code(s): 20760676 Code(s): I47.1 - SUPRAVENTRICULAR TACHYCARDIA Status: Acute Priority: High Current Visit: No (5) HTN (hypertension) SNOMED Code(s): 15840047 Code(s): I10 - ESSENTIAL (PRIMARY) HYPERTENSION Status: Chronic Priority : Medium Current Visit: No Qualifiers: Hypertension type: unspecified Qualified Code(s): I10 - Essential (primary ) hypertension (6) HLD (hyperlipidemia) SNOMED Code(s): 59654152 Code(s): E78.5 - HYPERLIPIDEMIA, UNSPECIFIED Status: Chronic Priority: Medium Current Visit: No Qualifiers: Hyperlipidemia type: unspecified Qualified Code(s): E78.5 - Hyperlipidemia , unspecified (7) Type II diabetes mellitus SNOMED Code(s): 79709775 Code(s): E11.9 - TYPE 2 DIABETES MELLITUS WITHOUT COMPLICATIONS Status: Chronic Priority: Medium Current Visit: No Qualifiers: Diabetes mellitus chcf insulin use: unspecified intermediate card tender insulin use status Diabetes mellitus complication status: with unspecified complications Qualified Code(s): E11.8 - Type 2 diabetes mellitus with unspecified complications (8) Anemia SNOMED Code(s): 672253598 Code(s): D64.9 - ANEMIA, UNSPECIFIED Status: Acute Current Visit: Yes Qualifiers: Anemia type: unspecified type Qualified Code(s): D64.9 - Anemia, unspecified (9) Hypomagnesemia SNOMED Code(s): 546897446 Code(s): E83.42 - HYPOMAGNESEMIA Status: Acute Priority: High Current Visit: Yes - Problem List Review Problem List Initiated/Reviewed/Updated: Yes - My Orders Last 24 Hours: My Active Orders 09/21/17 11:57 Consult to Physician [CONS] Routine 09/21/17 11:58 Notify Provider Consults [RC] ASDIRECTED 09/21/17 14:03 hydrALAZINE [Apresoline] 20 mg IVPUSH Q4H PRN 09/21/17 14:55 UA W/MICROSCOPIC [URIN] Routine 09/22/17 09:25 CANCER ANTIGEN (CA) 125 [REF] Routine 09/22/17 09:26 Occult Blood Diagnostic GI [OCCULT BLOOD DIAGNOSTIC] [OP] Routine - Plan Plan:: Impression: Acute on chronic diarrhea, NOS--> resolved CT of abd/pelvis with adenexa mass, left side Pelvic US - Complicated cystic findings within left pelvis; differential includes benign as well as lower grade malignant ovarian lesions Nonspecific colitis Palpitations with elevated HR, query paroxysmal SVT Recent Holter Monitor Query UTI -> Proteus; repeat UA negative Query Anemia -> Occult stool, repeat Hgb tomorrow Hypomagnesemia - supplemented Chronic: Obese, BMI 31.7 HTN HLD Diabetes Mellitus type 2 Plan: Lopressor BID with parameters Clear liquids-> advanced to ADA diet Correct electrolytes IVF-> stop IV ATBs -> stopped Repeat UA negative Proton pump inhibitor Stool studies-> negative General surgery consult; possible Col[facility]acker consult -> Candace Felix PA-C with Gynecologic Oncology DVT/GI prophylaxis Code status: Full code; PCP: Dr. Cole
[2017-09-22] MEDS: Enoxaparin 40 MG/0.4 ML Syringe SUBCUT SCH (11:22)
[2017-09-23] MEDS: Metoprolol Tartrate 25 MG Tab PO SCH (05:31)
[2017-09-23] MEDS: metFORMIN 500 MG Tab PO SCH (06:03)
[2017-09-23] MEDS ORDERED: Magnesium Sulfate/Water 2 GM in Premix Bag 1 BAG IV ONE (06:36)
[2017-09-23] MEDS: Saccharomyces Boulardii (Probiotic) 250 MG Cap PO SCH (08:17)
[2017-09-23] MEDS: Pantoprazole 40 MG Tab.CR PO SCH (08:17)
[2017-09-23] MEDS: Insulin Aspart 100 Units/ML 3 ML Pen SUBCUT SCH ×2 (08:20→11:32)
--- NOTE | 2017-09-23 08:28 | CONS ---
CONSULTING PHYSICIAN: Armin Maria MD DATE OF CONSULTATION: 09/22/2017 IDENTIFICATION: The patient is an 82-year-old female who is admitted to the [facility] Med/Surg unit in [place], [place]. She is seen for psychiatric evaluation. CHIEF COMPLAINT: "I thought I had the flu." HISTORY OF PRESENT ILLNESS: The patient is an 82-year-old female who is admitted to [facility] Med/Surg unit in [place], [place] on 09/19/2017 for worsening symptoms of flu and the patient then was diagnosed with a urinary tract infection, which is currently being treated and having an ovarian cyst worked up to make sure it is noncancerous. Staff is reporting that the patient appears quite talkative and perhaps overly anxious with her stay in the hospital unit, and upon interview, the patient is stating "everything is hunky-dory" actually and denies any excessive anxiety. In fact, the patient states her mood is good. She states she has good family supports in the community and she reports she has a good sleep and has good appetite. She states she definitely was a little upset overall by having to be in the hospital, but she does feel that things are going well and she feels that she is handling any stress about the hospital stay in an appropriate fashion, does not feel that she needs any medications at this point in time to handle excessive anxiety or depression. The patient denies any previous psychiatric medication history. Denies any suicidal or homicidal ideation or any psychotic, delusional, or paranoid symptoms. MEDICATIONS: Prior to admission, none. ALLERGIES: No known drug allergies. PAST MEDICAL HISTORY: 1. Urinary tract infection. 2. Ovarian cyst that currently is being worked up to rule out cancer. REVIEW OF SYSTEMS: Aside from genitourinary and reproductive, all other major organ systems are negative at this point in time for acute difficulties or complications. FAMILY PSYCHIATRIC AND CD HISTORY: None reported. PAST PSYCHIATRIC AND CD HISTORY: The patient denies. SOCIAL HISTORY: The patient was born and raised in [place], [place]. She is currently living in [place], [place] by herself. She is a , but does have a number of children from her marriage and some of the children are still in the area and are very supportive and close with the patient, particularly her 2 sons. MENTAL STATUS EXAMINATION: The patient is an 82-year-old, pleasant, talkative white female, in no apparent distress. Speech is of regular rate and rhythm. The patient is cognitively oriented x3. Psychomotor activity is within normal limits. There are no abnormal motor movements or tics observed. Gait and station are not observed. This patient is seated for the purposes of the inpatient consult. Mood is good. Affect is cooperative overall for the purposes of the inpatient consult. There is no behavioral or stated evidence of acute suicidal or homicidal ideation or acute psychotic, delusional, or paranoid symptoms. Thought processes are organized. There are no manic symptoms or loose associations evident. Judgment and insight appear unimpaired at this point in time. Motivation for help is good. VITALS: 110/79, 70, 16, 97.2 degrees. IMPRESSION: [place] I: None. [place] II: None. [place] III: 1. Urinary tract infection. 2. Ovarian cyst, currently being worked up to rule out cancer. [place] IV: Moderate to severe. [place] V: 65 to 70. PLAN: 1. Continue current treatment plan as laid out and prescribed by the patient's inpatient primary medical treatment team. 2. It does not appear that any psychiatric intervention is necessary at the moment as the patient does not request any psychiatric intervention and it does not appear that there is any depression or anxiety rising to the level that the patient needs treatment at the moment. 3. We will continue follow up with the patient on an as-needed basis while she remains on the inpatient Med/Surg Unit at [facility] in [place], [place]. 4. We will follow up with the patient sooner if any complications in the interim. 5. Crisis plan is in place. MMODAL /[id number]
--- NOTE | 2017-09-23 10:30 | PCM.DCSUM1 ---
<Ryan Sanders - Last Filed: 09/23/17 11:08> Discharge Summary - Hospital Course HPI Initial Comments: 82 year old female who returns with a complaint of abrupt weakness, malaise in the setting of one loose stool without fever or chills. She may or may not have had an episode of PSVT in that setting. A holter monitor has been returned after 24 hours. Diagnosis: Stroke: No - Discharge Data Discharge Date: 09/23/17 (Admit date: 09/19/17) Discharge Disposition: Home, Self-Care 01 Condition: Good - Discharge Diagnosis/Problem(s) (1) Fall SNOMED Code(s): 9716530, 487611247 ICD Code: W19.XXXA - UNSPECIFIED FALL, INITIAL ENCOUNTER Status: Acute Priority: High Current Visit: Yes Qualifiers: Encounter type: initial encounter Qualified Code(s): W19.XXXA - Unspecified fall, initial encounter (2) Generalized weakness SNOMED Code(s): 94537959 ICD Code: R53.1 - WEAKNESS Status: Acute Priority: High Current Visit: Yes (3) UTI (urinary tract infection) SNOMED Code(s): 53347055 ICD Code: N39.0 - URINARY TRACT INFECTION, SITE NOT SPECIFIED Status: Resolved Priority: High Current Visit: Yes Qualifiers: Urinary tract infection type: site unspecified Hematuria presence: without hematuria Qualified Code(s): N39.0 - Urinary tract infection, site not specified (4) Paroxysmal SVT (supraventricular tachycardia) SNOMED Code(s): 53817359 ICD Code: I47.1 - SUPRAVENTRICULAR TACHYCARDIA Status: Acute Priority: High Current Visit: No (5) HTN (hypertension) SNOMED Code(s): 38975063 ICD Code: I10 - ESSENTIAL (PRIMARY) HYPERTENSION Status: Chronic Priority : Medium Current Visit: No Qualifiers: Hypertension type: unspecified Qualified Code(s): I10 - Essential (primary ) hypertension (6) HLD (hyperlipidemia) SNOMED Code(s): 88441501 ICD Code: E78.5 - HYPERLIPIDEMIA, UNSPECIFIED Status: Chronic Priority: Medium Current Visit: No Qualifiers: Hyperlipidemia type: unspecified Qualified Code(s): E78.5 - Hyperlipidemia , unspecified (7) Type II diabetes mellitus SNOMED Code(s): 10968880 ICD Code: E11.9 - TYPE 2 DIABETES MELLITUS WITHOUT COMPLICATIONS Status: Chronic Priority: Medium Current Visit: No Qualifiers: Diabetes mellitus half-way insulin use: unspecified half-way insulin use status Diabetes mellitus complication status: with unspecified complications Qualified Code(s): E11.8 - Type 2 diabetes mellitus with unspecified complications (8) Anemia SNOMED Code(s): 974853037 ICD Code: D64.9 - ANEMIA, UNSPECIFIED Status: Acute Current Visit: Yes Qualifiers: Anemia type: unspecified type Qualified Code(s): D64.9 - Anemia, unspecified (9) Hypomagnesemia SNOMED Code(s): 444675692 ICD Code: E83.42 - HYPOMAGNESEMIA Status: Acute Priority: High Current Visit: Yes - Patient Summary/Data Consults: Consultations 09/19/17 19:05 Consult to Speech Language Pathology [SHOE LACER Evaluation and Treatment] [CONS] Routine 09/20/17 11:23 Consult to Physician [CONS] Routine 09/21/17 11:57 Consult to Physician [CONS] Routine Labs Pending at D/C: Ca 125 pending Recommended Follow-up Testing/Procedures: Follow-up with PCP within 7-10 days of discharge. Patient has an appointment with [facility] Gynecology/oncology at [address] Time on 10/11/17. The plan is for an office visit on 10/11/17 and then procedure on 10/12/17. Post-procedural follow-up can be provided in [place] as the physician does outreach clinic there. Recommending recheck magnesium at completion of her current course as magnesium has been low and subsequently supplemented here. She will be discharged on magnesium supplementation as well. Hospital Course: Impression: Acute on chronic diarrhea, NOS--> resolved CT of abd/pelvis with adenexa mass, left side Pelvic US - Complicated cystic findings within left pelvis; differential includes benign as well as lower grade malignant ovarian lesions Nonspecific colitis Palpitations with elevated HR, query paroxysmal SVT Recent Holter Monitor Query UTI -> Proteus; repeat UA negative Query Anemia -> Occult stool, repeat Hgb tomorrow Hypomagnesemia - supplemented Chronic: Obese, BMI 31.7 HTN HLD Diabetes Mellitus type 2 Plan: Lopressor BID with parameters Clear liquids-> advanced to ADA diet Correct electrolytes IVF-> stop IV ATBs -> stopped Repeat UA negative Proton pump inhibitor Stool studies-> negative General surgery consult; [facility] DVT/GI prophylaxis Code status: Full code; PCP: Dr. Douglas Erazo Lindsey did quite well. She was ambulating frequently with nursing without difficulty and completed 3 laps just prior to discharge. This correlates to >4 METS. 12-lead EKG was performed and shows a RBBB at a rate o 83 BPM. She has had some PSVT while on a Holter Monitor prior to admission however she has not had any episodes while hospitalized. She was started on lopressor BID here. Her magnesium has been quite low and was supplemented. She will be discharged on 400mg magnesium daily for 14 days on discharge. Recommend recheck with PCP after completing course to see if this is something needed long -term. She did have an episode of anemia while here in which her Hgb was 11.9--> 11.5-->10.7-->11.1. Occult stool was negative. A1C was obtained for pre- operative assessment and was 7.0. She does have some operative risk factors such as history of PSVT, obesity, HTN, HLD, and type II DM. Her physical exam has been fairly benign. Based on the data she caries a mild to moderate cardiac risk for surgery. She has had some lose stools and her metformin was decreased to 750 BID to possibly help. She did have a positive UA while here and culture contained proteus. She received some antibiotics initially while here and repeat UA was negative. She was given a probiotic and will will be discharged on this as well. Dr. Hernadez was consulted after a 8.9cm cystic structure was located in her pelvis. He was able to find a follow-up physician for possible surgical procedure. She has an appointment with [facility] Gynecology/ oncology on 10/11/17 in [place]. This visit will likely be followed-up with surgery on 10/12/17. All information from this visit was faxed to them. SHOE LACER preformed a cognitive exam and found no deficit. Dr. Maria was consulted for psychiatric services as it was noted she was quite anxious. He had no concerns. Her son was in the room prior to discharge and was updated on discharge plan. Both him and his mother voiced understanding and all questions were answered. She will be discharged today. We were recommending home health on discharge however the patient and her son refused, saying she would have nearly 24/7 care from family. - Patient Instructions Diet: Diabetic Diet Activity: As Tolerated Driving: Do Not Drive (today) Showering/Bathing: May Shower Notify Provider of: Fever, Increased Pain, Nausea and/or Vomiting Other/Special Instructions: You have an appointment in [place], [place] at [facility] Gyneoclolgy Oncology on 10/11/17 at 9:30 Central time for a consult. They are planning on surgery on 10/12/17. The physician there does an outreach clinic in [place] and your subsequent follow-up appointments can be at [place] in [place] after surgery. They are mailing you a packet of information. If needed you can contact them directly at . Follow- up with PCP within 7-10 days of discharge. Take all medicaitons as prescribed. Check your blood sugars as directed - Discharge Plan *PRESCRIPTION DRUG MONITORING PROGRAM REVIEWED*: Not Applicable *COPY OF PRESCRIPTION DRUG MONITORING REPORT IN PATIENT CED: Not Applicable Prescriptions/Med Rec: Magnesium Oxide [Magnesium] 400 mg PO DAILY #24 tablet metFORMIN [Glucophage] 750 mg PO BIDMEALS #40 tablet Metoprolol Tartrate [Lopressor] 12.5 mg PO Q12H #40 tablet Saccharomyces Boulardii [Florastor] 250 mg PO BID #40 cap Home Medications: Home Meds Aspirin 81 mg PO DAILY 09/17/17 [History] Calcium Carbonate [Tums] 1 tab PO BEDTIME PRN 09/17/17 [History] Cholecalciferol (Vitamin D3) [Vitamin D3] 1 tab PO QPM 09/17/17 [History] Fish Oil/DHA/EPA [Fish Oil 1,200 MG] 1,200 mg PO QPM 09/17/17 [History] Flaxseed/Omega3,6,9/Fatty Acid [Flax Seed Oil 1,300 mg Softgel] 1 tab PO DAILY 09/17/17 [History] Lisinopril 20 mg PO BID 09/17/17 [History] Naproxen Sodium [Aleve] 220 mg PO DAILY PRN 09/17/17 [History] Simvastatin [Zocor] 40 mg PO BEDTIME 09/17/17 [History] Ubidecarenone [Co Q-10] 20 mg PO DAILY 09/17/17 [History] Vitamin B Complex & Vit C No.4 [Super B Complex] 1 tab PO DAILY 09/17/17 [ History] hydroCHLOROthiazide [Hydrochlorothiazide] 12.5 mg PO DAILY 09/17/17 [History] Loperamide [Imodium] 2 mg PO Q6H PRN #30 cap 09/18/17 [Rx] Magnesium Oxide [Magnesium] 400 mg PO DAILY #24 tablet 09/23/17 [Rx] Metoprolol Tartrate [Lopressor] 12.5 mg PO Q12H #40 tablet 09/23/17 [Rx] Saccharomyces Boulardii [Florastor] 250 mg PO BID #40 cap 09/23/17 [Rx] metFORMIN [Glucophage] 750 mg PO BIDMEALS #40 tablet 09/23/17 [Rx] Patient Handouts: Weakness, [id number], Urinary Tract Infection, Adult, Easy- to-Read Referrals: Jasbir Cole Jr, MD [Primary Care Provider] - 10/04/17 9:45 am - General Info Date of Service: 09/23/17 Admission Dx/Problem (Free Text: Admission Diagnosis/Problem Admission Diagnosis/Problem UTI, Urinary tract infectious disease Subjective Update: In to see Lindsey. She is sitting in the chair watching TV. She has been up ambulating with nursing. She is doing quite well. She reports occasional loose stools, however no abdominal pain. Occult stool was negative. She will be discharged today. Functional Status: Reports: Pain Controlled, Tolerating Diet, Ambulating, Urinating. Denies: New Symptoms - Review of Systems General: Reports: No Symptoms. Denies: Fever, Weakness, Fatigue, Malaise HEENT: Reports: No Symptoms. Denies: Eye Pain, Sinus Congestion, Sore Throat Pulmonary: Reports: No Symptoms. Denies: Shortness of Breath, Cough, Sputum, Wheezing Cardiovascular: Reports: No Symptoms. Denies: Chest Pain, Dyspnea on Exertion, Edema, Lightheadedness Gastrointestinal: Reports: Other (occasional loose stools). Denies: Abdominal Pain, Constipation, Difficulty Swallowing, Hematochezia, Melena, Nausea, Vomiting Genitourinary: Reports: No Symptoms Musculoskeletal: Reports: No Symptoms Skin: Reports: No Symptoms Neurological: Reports: No Symptoms Psychiatric: Reports: No Symptoms - Patient Data Vitals - Most Recent: Last Vital Signs Temp 97.9 F 09/23/17 07:37 Pulse 68 09/23/17 07:37 Resp 18 09/23/17 07:37 BP 121/87 09/23/17 07:37 Pulse Ox 98 09/23/17 07:37 Weight - Most Recent: 94.12 kg I&O - Last 24 hours: Intake & Output 09/22/17 09/23/17 09/23/17 22:59 06:59 14:59 Intake Total 680 1100 220 Output Total 750 925 Balance -70 175 220 Lab Results - Last 24 hrs: Laboratory Results - last 24 hr 09/22/17 09/22/17 09/22/17 Range/Units 11:20 16:53 20:46 WBC (3.98-10.04) K/mm3 RBC (3.98-5.22) M/mm3 Hgb (11.2-15.7) gm/L Hct (34.1-44.9) % MCV (79.4-94.8) fl MCH (25.6-32.2) pg MCHC (32.2-35.5) g/dl RDW Std Deviation (36.4-46.3) fL Plt Count (182-369) K/mm3 MPV (9.4-12.3) fl Neut % (Auto) (34.0-71.1) % Lymph % (Auto) (19.3-51.7) % [place] % (Auto) (4.7-12.5) % Eos % (Auto) (0.7-5.8) Baso % (Auto) (0.1-1.2) % Neut # (Auto) (1.56-6.13) K/mm3 Lymph # (Auto) (1.18-3.74) K/mm3 [place] # (Auto) (0.24-0.36) K/mm3 Eos # (Auto) (0.04-0.36) K/mm3 Baso # (Auto) (0.01-0.08) K/mm3 Sodium (136-145) mEq/L Potassium (3.5-5.1) mEq/L Chloride (98-107) mEq/L Carbon Dioxide (21-32) mEq/L Anion Gap (5-15) BUN (7-18) mg/dL Creatinine (0.55-1.02) mg/dL Est Cr Clr Drug Dosing mL/min Estimated GFR (MDRD) (>60) mL/min BUN/Creatinine Ratio (14-18) Glucose (83-115) mg/dL POC Glucose 182 H 164 H 197 H (83-110) mg/dL Hemoglobin A1c (4.50-6.20) % Lactic Acid (0.4-2.0) mmol/L Calcium (8.5-10.1) mg/dL Magnesium (1.8-2.4) mg/dl C-Reactive Protein (<1.0) mg/dL 09/23/17 09/23/17 09/23/17 Range/Units 06:00 06:05 06:05 WBC 7.81 (3.98-10.04) K/mm3 RBC 3.83 L (3.98-5.22) M/mm3 Hgb 11.1 L (11.2-15.7) gm/L Hct 34.0 L (34.1-44.9) % MCV 88.8 (79.4-94.8) fl MCH 29.0 (25.6-32.2) pg MCHC 32.6 (32.2-35.5) g/dl RDW Std Deviation 42.4 (36.4-46.3) fL Plt Count 425 H (182-369) K/mm3 MPV 8.5 L (9.4-12.3) fl Neut % (Auto) 70.9 (34.0-71.1) % Lymph % (Auto) 17.8 L (19.3-51.7) % [place] % (Auto) 7.3 (4.7-12.5) % Eos % (Auto) 3.3 (0.7-5.8) Baso % (Auto) 0.3 (0.1-1.2) % Neut # (Auto) 5.54 (1.56-6.13) K/mm3 Lymph # (Auto) 1.39 (1.18-3.74) K/mm3 [place] # (Auto) 0.57 H (0.24-0.36) K/mm3 Eos # (Auto) 0.26 (0.04-0.36) K/mm3 Baso # (Auto) 0.02 (0.01-0.08) K/mm3 Sodium 134 L (136-145) mEq/L Potassium 4.0 (3.5-5.1) mEq/L Chloride 101 (98-107) mEq/L Carbon Dioxide 27 (21-32) mEq/L Anion Gap 10.0 (5-15) BUN 9 (7-18) mg/dL Creatinine 0.7 (0.55-1.02) mg/dL Est Cr Clr Drug Dosing 59.22 mL/min Estimated GFR (MDRD) > 60 (>60) mL/min BUN/Creatinine Ratio 12.9 L (14-18) Glucose 167 H (83-115) mg/dL POC Glucose (83-110) mg/dL Hemoglobin A1c 7.00 H (4.50-6.20) % Lactic Acid (0.4-2.0) mmol/L Calcium 7.9 L (8.5-10.1) mg/dL Magnesium 1.7 L (1.8-2.4) mg/dl C-Reactive Protein 0.2 (<1.0) mg/dL 09/23/17 09/23/17 Range/Units 06:05 06:08 WBC (3.98-10.04) K/mm3 RBC (3.98-5.22) M/mm3 Hgb (11.2-15.7) gm/L Hct (34.1-44.9) % MCV (79.4-94.8) fl MCH (25.6-32.2) pg MCHC (32.2-35.5) g/dl RDW Std Deviation (36.4-46.3) fL Plt Count (182-369) K/mm3 MPV (9.4-12.3) fl Neut % (Auto) (34.0-71.1) % Lymph % (Auto) (19.3-51.7) % [place] % (Auto) (4.7-12.5) % Eos % (Auto) (0.7-5.8) Baso % (Auto) (0.1-1.2) % Neut # (Auto) (1.56-6.13) K/mm3 Lymph # (Auto) (1.18-3.74) K/mm3 [place] # (Auto) (0.24-0.36) K/mm3 Eos # (Auto) (0.04-0.36) K/mm3 Baso # (Auto) (0.01-0.08) K/mm3 Sodium (136-145) mEq/L Potassium (3.5-5.1) mEq/L Chloride (98-107) mEq/L Carbon Dioxide (21-32) mEq/L Anion Gap (5-15) BUN (7-18) mg/dL Creatinine (0.55-1.02) mg/dL Est Cr Clr Drug Dosing mL/min Estimated GFR (MDRD) (>60) mL/min BUN/Creatinine Ratio (14-18) Glucose (83-115) mg/dL POC Glucose 176 H (83-110) mg/dL Hemoglobin A1c (4.50-6.20) % Lactic Acid 0.6 (0.4-2.0) mmol/L Calcium (8.5-10.1) mg/dL Magnesium (1.8-2.4) mg/dl C-Reactive Protein (<1.0) mg/dL BETO Results - Last 24 hrs: Microbiology 09/22/17 14:01 Stool Occult Blood (BETO) - Final Stool / Feces 09/19/17 23:13 Stool Culture - Final Stool / Feces - Stool, Aspirate - Final - Final Med Orders - Current: Current Medications Calcium Carbonate/Glycine (Tums) 500 mg PO BEDTIME PRN PRN Reason: ACID REFLUX Last Admin: 09/19/17 21:42 Dose: 500 mg Dextrose/Water (Dextrose 50% In Water) 50 ml IVPUSH ASDIRECTED PRN PRN Reason: Hypoglycemia Enoxaparin Sodium (Lovenox) 40 mg SUBCUT Q24H [facility] Last Admin: 09/22/17 11:22 Dose: 40 mg Hydralazine HCl (Apresoline) 20 mg IVPUSH Q4H PRN PRN Reason: Hypertension Insulin Aspart (Novolog) 0 unit SUBCUT QIDACANDBED [facility]; Protocol Last Admin: 09/23/17 08:20 Dose: 1 unit Metformin HCl (Glucophage) 750 mg PO BIDMEALS [facility] Last Admin: 09/23/17 06:03 Dose: 750 mg Metoprolol Tartrate (Lopressor) 5 mg IVPUSH Q6H PRN PRN Reason: HR>120 Metoprolol Tartrate (Lopressor) 12.5 mg PO Q12H [facility] Last Admin: 09/23/17 05:31 Dose: Not Given Pantoprazole Sodium (Protonix) 40 mg PO Q12HR [facility] Last Admin: 09/23/17 08:17 Dose: 40 mg Saccharomyces Boulardii (Florastor) 250 mg PO BID [facility] Last Admin: 09/23/17 08:17 Dose: 250 mg Sodium Chloride (Saline Flush) 10 ml FLUSH ASDIRECTED PRN PRN Reason: Keep Vein Open Last Admin: 09/19/17 08:59 Dose: 10 ml Sodium Chloride (Saline Flush) 10 ml FLUSH ONETIME PRN PRN Reason: IV FLUSH Last Admin: 09/19/17 13:25 Dose: 10 ml Temazepam (Restoril) 7.5 mg PO BEDTIME PRN PRN Reason: Insomnia Discontinued Medications Diatrizoate Meglum/Diatrizoate Sod (Gastrografin 37%) 120 ml PO ONETIME ONE Stop: 09/19/17 13:10 Last Admin: 09/19/17 13:25 Dose: 90 ml Ceftriaxone Sodium 2 gm/ (Sodium Chloride) 100 mls @ 100 mls/hr IV ONETIME ONE Stop: 09/19/17 12:32 Last Admin: 09/19/17 12:18 Dose: 100 mls/hr Levofloxacin/Dextrose 750 mg/ (Premix) 150 mls @ 100 mls/hr IV Q49H [facility] Last Admin: 09/19/17 21:41 Dose: 100 mls/hr Metronidazole 500 mg/ Premix 100 mls @ 100 mls/hr IV Q8H [facility] Last Admin: 09/21/17 03:55 Dose: 100 mls/hr Sodium Chloride (Normal Saline) 1,000 mls @ 100 mls/hr IV ASDIRECTED [facility] Last Admin: 09/20/17 08:50 Dose: 100 mls/hr Levofloxacin/Dextrose 750 mg/ (Premix) 150 mls @ 100 mls/hr IV Q48H [facility] Magnesium Sulfate 4 gm/ Premix 100 mls @ 50 mls/hr IV ONETIME ONE Stop: 09/20/17 12:09 Last Admin: 09/20/17 12:41 Dose: 50 mls/hr Magnesium Sulfate 4 gm/ Premix 100 mls @ 25 mls/hr IV ONETIME ONE Stop: 09/22/17 08:54 Last Admin: 09/22/17 09:38 Dose: 25 mls/hr Magnesium Sulfate 2 gm/ Premix 50 mls @ 25 mls/hr IV ONETIME ONE Stop: 09/23/17 08:35 Last Admin: 09/23/17 08:14 Dose: 25 mls/hr Iopamidol (Isovue-300 (61%)) 100 ml IVPUSH ONETIME ONE Stop: 09/19/17 13:10 Last Admin: 09/19/17 13:25 Dose: 100 ml Pantoprazole Sodium (Protonix Iv) 40 mg IVPUSH Q12H [facility] Last Admin: 09/20/17 06:05 Dose: 40 mg Pantoprazole Sodium (Protonix) 40 mg PO Q12H [facility] Last Admin: 09/20/17 11:23 Dose: Not Given - Exam Quality Assessment: Reports: DVT Prophylaxis General: Reports: Alert, Oriented, Cooperative, No Acute Distress HEENT: Reports: Pupils Equal, Pupils Reactive, EOMI, Mucous Membr. Moist/[place] Neck: Reports: Supple, Trachea Midline, No JVD Lungs: Reports: Clear to Auscultation, Normal Respiratory Effort Cardiovascular: Reports: Regular Rate, Regular Rhythm GI/Abdominal Exam: Normal Bowel Sounds, Soft, Non-Tender, No Distention, No Abnormal Bruit (Female) Exam: Deferred Rectal (Female) Exam: Deferred Back Exam: Reports: Normal Inspection, Full Range of Motion Extremities: Normal Inspection, Normal Range of Motion, Non-Tender, No Pedal Edema, Normal Capillary Refill Skin: Reports: Warm, Dry, Intact Neurological: Reports: No New Focal Deficit Psy/Mental Status: Reports: Alert, Normal Affect, Normal Mood <Johana Orozco - Last Filed: 09/23/17 13:06> Discharge Summary - Hospital Course Free Text/Narrative:: The patient will be following up at [place], [place]; she will be seen and evaluated by Dr Mathews and staff for a left sided adenexa mass. The consult will be on 10/11 followed by the procedure the following day. An outpatient follow up will be conducted by Dr Mathews's physician gynecological assistant, Lisa Lee. The patient has mild risk for surgery from a cardiac standpoint. Workload easily exceeds METS 4. She has had PSVT, but was started on Lopressor with good results. PCP follow up and cardiology may be performed after the scheduled consult and procedure. - Patient Summary/Data Consults: Consultations 09/19/17 19:05 Consult to Speech Language Pathology [SHOE LACER Evaluation and Treatment] [CONS] Routine 09/20/17 11:23 Consult to Physician [CONS] Routine 09/21/17 11:57 Consult to Physician [CONS] Routine - Patient Data Vitals - Most Recent: Last Vital Signs Temp 36.6 C 09/23/17 07:37 Pulse 68 09/23/17 07:37 Resp 18 09/23/17 07:37 BP 121/87 09/23/17 07:37 Pulse Ox 98 09/23/17 07:37 I&O - Last 24 hours: Intake & Output 09/22/17 09/23/17 09/23/17 22:59 06:59 14:59 Intake Total 680 1100 220 Output Total 750 925 Balance -70 175 220 Lab Results - Last 24 hrs: Laboratory Results - last 24 hr 09/22/17 09/22/17 09/22/17 Range/Units 11:20 16:53 20:46 WBC (3.98-10.04) K/mm3 RBC (3.98-5.22) M/mm3 Hgb (11.2-15.7) gm/L Hct (34.1-44.9) % MCV (79.4-94.8) fl MCH (25.6-32.2) pg MCHC (32.2-35.5) g/dl RDW Std Deviation (36.4-46.3) fL Plt Count (182-369) K/mm3 MPV (9.4-12.3) fl Neut % (Auto) (34.0-71.1) % Lymph % (Auto) (19.3-51.7) % [place] % (Auto) (4.7-12.5) % Eos % (Auto) (0.7-5.8) Baso % (Auto) (0.1-1.2) % Neut # (Auto) (1.56-6.13) K/mm3 Lymph # (Auto) (1.18-3.74) K/mm3 [place] # (Auto) (0.24-0.36) K/mm3 Eos # (Auto) (0.04-0.36) K/mm3 Baso # (Auto) (0.01-0.08) K/mm3 Sodium (136-145) mEq/L Potassium (3.5-5.1) mEq/L Chloride (98-107) mEq/L Carbon Dioxide (21-32) mEq/L Anion Gap (5-15) BUN (7-18) mg/dL Creatinine (0.55-1.02) mg/dL Est Cr Clr Drug Dosing mL/min Estimated GFR (MDRD) (>60) mL/min BUN/Creatinine Ratio (14-18) Glucose (83-115) mg/dL POC Glucose 182 H 164 H 197 H (83-110) mg/dL Hemoglobin A1c (4.50-6.20) % Lactic Acid (0.4-2.0) mmol/L Calcium (8.5-10.1) mg/dL Magnesium (1.8-2.4) mg/dl C-Reactive Protein (<1.0) mg/dL 09/23/17 09/23/17 09/23/17 Range/Units 06:00 06:05 06:05 WBC 7.81 (3.98-10.04) K/mm3 RBC 3.83 L (3.98-5.22) M/mm3 Hgb 11.1 L (11.2-15.7) gm/L Hct 34.0 L (34.1-44.9) % MCV 88.8 (79.4-94.8) fl MCH 29.0 (25.6-32.2) pg MCHC 32.6 (32.2-35.5) g/dl RDW Std Deviation 42.4 (36.4-46.3) fL Plt Count 425 H (182-369) K/mm3 MPV 8.5 L (9.4-12.3) fl Neut % (Auto) 70.9 (34.0-71.1) % Lymph % (Auto) 17.8 L (19.3-51.7) % [place] % (Auto) 7.3 (4.7-12.5) % Eos % (Auto) 3.3 (0.7-5.8) Baso % (Auto) 0.3 (0.1-1.2) % Neut # (Auto) 5.54 (1.56-6.13) K/mm3 Lymph # (Auto) 1.39 (1.18-3.74) K/mm3 [place] # (Auto) 0.57 H (0.24-0.36) K/mm3 Eos # (Auto) 0.26 (0.04-0.36) K/mm3 Baso # (Auto) 0.02 (0.01-0.08) K/mm3 Sodium 134 L (136-145) mEq/L Potassium 4.0 (3.5-5.1) mEq/L Chloride 101 (98-107) mEq/L Carbon Dioxide 27 (21-32) mEq/L Anion Gap 10.0 (5-15) BUN 9 (7-18) mg/dL Creatinine 0.7 (0.55-1.02) mg/dL Est Cr Clr Drug Dosing 59.22 mL/min Estimated GFR (MDRD) > 60 (>60) mL/min BUN/Creatinine Ratio 12.9 L (14-18) Glucose 167 H (83-115) mg/dL POC Glucose (83-110) mg/dL Hemoglobin A1c 7.00 H (4.50-6.20) % Lactic Acid (0.4-2.0) mmol/L Calcium 7.9 L (8.5-10.1) mg/dL Magnesium 1.7 L (1.8-2.4) mg/dl C-Reactive Protein 0.2 (<1.0) mg/dL 09/23/17 09/23/17 09/23/17 Range/Units 06:05 06:08 11:31 WBC (3.98-10.04) K/mm3 RBC (3.98-5.22) M/mm3 Hgb (11.2-15.7) gm/L Hct (34.1-44.9) % MCV (79.4-94.8) fl MCH (25.6-32.2) pg MCHC (32.2-35.5) g/dl RDW Std Deviation (36.4-46.3) fL Plt Count (182-369) K/mm3 MPV (9.4-12.3) fl Neut % (Auto) (34.0-71.1) % Lymph % (Auto) (19.3-51.7) % [place] % (Auto) (4.7-12.5) % Eos % (Auto) (0.7-5.8) Baso % (Auto) (0.1-1.2) % Neut # (Auto) (1.56-6.13) K/mm3 Lymph # (Auto) (1.18-3.74) K/mm3 [place] # (Auto) (0.24-0.36) K/mm3 Eos # (Auto) (0.04-0.36) K/mm3 Baso # (Auto) (0.01-0.08) K/mm3 Sodium (136-145) mEq/L Potassium (3.5-5.1) mEq/L Chloride (98-107) mEq/L Carbon Dioxide (21-32) mEq/L Anion Gap (5-15) BUN (7-18) mg/dL Creatinine (0.55-1.02) mg/dL Est Cr Clr Drug Dosing mL/min Estimated GFR (MDRD) (>60) mL/min BUN/Creatinine Ratio (14-18) Glucose (83-115) mg/dL POC Glucose 176 H 162 H (83-110) mg/dL Hemoglobin A1c (4.50-6.20) % Lactic Acid 0.6 (0.4-2.0) mmol/L Calcium (8.5-10.1) mg/dL Magnesium (1.8-2.4) mg/dl C-Reactive Protein (<1.0) mg/dL BETO Results - Last 24 hrs: Microbiology 09/22/17 14:01 Stool Occult Blood (BETO) - Final Stool / Feces 09/19/17 23:13 Stool Culture - Final Stool / Feces - Stool, Aspirate - Final - Final Med Orders - Current: Current Medications Calcium Carbonate/Glycine (Tums) 500 mg PO BEDTIME PRN PRN Reason: ACID REFLUX Last Admin: 09/19/17 21:42 Dose: 500 mg Dextrose/Water (Dextrose 50% In Water) 50 ml IVPUSH ASDIRECTED PRN PRN Reason: Hypoglycemia Enoxaparin Sodium (Lovenox) 40 mg SUBCUT Q24H JANET Last Admin: 09/23/17 11:33 Dose: 40 mg Hydralazine HCl (Apresoline) 20 mg IVPUSH Q4H PRN PRN Reason: Hypertension Insulin Aspart (Novolog) 0 unit SUBCUT QIDACANDBED [facility]; Protocol Last Admin: 09/23/17 11:32 Dose: 1 unit Metformin HCl (Glucophage) 750 mg PO BIDMEALS [facility] Last Admin: 09/23/17 06:03 Dose: 750 mg Metoprolol Tartrate (Lopressor) 5 mg IVPUSH Q6H PRN PRN Reason: HR>120 Metoprolol Tartrate (Lopressor) 12.5 mg PO Q12H [facility] Last Admin: 09/23/17 05:31 Dose: Not Given Pantoprazole Sodium (Protonix) 40 mg PO Q12HR [facility] Last Admin: 09/23/17 08:17 Dose: 40 mg Saccharomyces Boulardii (Florastor) 250 mg PO BID [facility] Last Admin: 09/23/17 08:17 Dose: 250 mg Sodium Chloride (Saline Flush) 10 ml FLUSH ASDIRECTED PRN PRN Reason: Keep Vein Open Last Admin: 09/19/17 08:59 Dose: 10 ml Sodium Chloride (Saline Flush) 10 ml FLUSH ONETIME PRN PRN Reason: IV FLUSH Last Admin: 09/19/17 13:25 Dose: 10 ml Temazepam (Restoril) 7.5 mg PO BEDTIME PRN PRN Reason: Insomnia Discontinued Medications Diatrizoate Meglum/Diatrizoate Sod (Gastrografin 37%) 120 ml PO ONETIME ONE Stop: 09/19/17 13:10 Last Admin: 09/19/17 13:25 Dose: 90 ml Ceftriaxone Sodium 2 gm/ (Sodium Chloride) 100 mls @ 100 mls/hr IV ONETIME ONE Stop: 09/19/17 12:32 Last Admin: 09/19/17 12:18 Dose: 100 mls/hr Levofloxacin/Dextrose 750 mg/ (Premix) 150 mls @ 100 mls/hr IV Q49H [facility] Last Admin: 09/19/17 21:41 Dose: 100 mls/hr Metronidazole 500 mg/ Premix 100 mls @ 100 mls/hr IV Q8H [facility] Last Admin: 09/21/17 03:55 Dose: 100 mls/hr Sodium Chloride (Normal Saline) 1,000 mls @ 100 mls/hr IV ASDIRECTED [facility] Last Admin: 09/20/17 08:50 Dose: 100 mls/hr Levofloxacin/Dextrose 750 mg/ (Premix) 150 mls @ 100 mls/hr IV Q48H [facility] Magnesium Sulfate 4 gm/ Premix 100 mls @ 50 mls/hr IV ONETIME ONE Stop: 09/20/17 12:09 Last Admin: 09/20/17 12:41 Dose: 50 mls/hr Magnesium Sulfate 4 gm/ Premix 100 mls @ 25 mls/hr IV ONETIME ONE Stop: 09/22/17 08:54 Last Admin: 09/22/17 09:38 Dose: 25 mls/hr Magnesium Sulfate 2 gm/ Premix 50 mls @ 25 mls/hr IV ONETIME ONE Stop: 09/23/17 08:35 Last Admin: 09/23/17 08:14 Dose: 25 mls/hr Iopamidol (Isovue-300 (61%)) 100 ml IVPUSH ONETIME ONE Stop: 09/19/17 13:10 Last Admin: 09/19/17 13:25 Dose: 100 ml Pantoprazole Sodium (Protonix Iv) 40 mg IVPUSH Q12H [facility] Last Admin: 09/20/17 06:05 Dose: 40 mg Pantoprazole Sodium (Protonix) 40 mg PO Q12H [facility] Last Admin: 09/20/17 11:23 Dose: Not Given
[2017-09-23] MEDS: Enoxaparin 40 MG/0.4 ML Syringe SUBCUT SCH (11:33)
== END 2017-09-23 12:50 | disposition home or self-care (01) | DRG 690 ==
LOC: JD.ED 08:10 → JD.MS 13:49 → OBSVTOIN 19:54
PROVIDERS: ADMIT Internal Medicine; ATTEND Internal Medicine
DX: N39.0 Urinary tract infection, site not specified (principal); I47.1 Supraventricular tachycardia; E78.00 Pure hypercholesterolemia, unspecified; R19.00 Intra-abdominal and pelvic swelling, mass and lump, unspecified site; K52.9 Noninfective gastroenteritis and colitis, unspecified; E78.5 Hyperlipidemia, unspecified; D64.9 Anemia, unspecified; E83.42 Hypomagnesemia; N83.202 Unspecified ovarian cyst, left side; B96.4 Proteus (mirabilis) (morganii) as the cause of diseases classified elsewhere; I10 Essential (primary) hypertension; K21.9 Gastro-esophageal reflux disease without esophagitis; E11.9 Type 2 diabetes mellitus without complications; S42.031A Displaced fracture of lateral end of right clavicle, initial encounter for closed fracture; R19.7 Diarrhea, unspecified; R53.81 Other malaise; R53.83 Other fatigue; R06.00 Dyspnea, unspecified; R53.1 Weakness; R06.02 Shortness of breath; W19.XXXA Unspecified fall, initial encounter; E66.9 Obesity, unspecified; Z68.31 Body mass index [BMI] 31.0-31.9, adult; Z90.710 Acquired absence of both cervix and uterus; Z90.49 Acquired absence of other specified parts of digestive tract; Z79.899 Other long term (current) drug therapy; Z79.84 Long term (current) use of oral hypoglycemic drugs; Z79.82 Long term (current) use of aspirin
CPT/HCPCS: 36415; 71045; 74177; 76856; 80053; 81001; 83690; 83880; 84484; 85025; 85610; 85730; 87086; 87088; 87186; 93005 ×2; 93971; 96365; 99285; C9113; J0696; J3490; J7030; J7050 ×2; Q9963; Q9967; 80048; 82272; 82962; 83036; 83605; 83735; 86140; 86304; 87046; 87425; 87493; 92523-GN; 93010; A9270-GY; J1650; J1815-GY; J1956; J3475; J7040

== ENCOUNTER 2022-05-29 19:45 | Emergency (ER) | payer MEDICARE ==
[2022-05-29] MEDS ORDERED: traMADol 50 MG Tab PO ONE (23:09)
== END 2022-05-29 23:41 | disposition home or self-care (01) ==
LOC: JD.ED 19:45
DX: S22.080A Wedge compression fracture of T11-T12 vertebra, initial encounter for closed fracture (principal); I10 Essential (primary) hypertension; K21.9 Gastro-esophageal reflux disease without esophagitis; E11.9 Type 2 diabetes mellitus without complications; E66.9 Obesity, unspecified; Z79.82 Long term (current) use of aspirin; Z79.84 Long term (current) use of oral hypoglycemic drugs; Z68.29 Body mass index [BMI] 29.0-29.9, adult; Z79.899 Other long term (current) drug therapy; W19.XXXA Unspecified fall, initial encounter
CPT/HCPCS: 72131; 82947; 99284; A9270; 99283

== ENCOUNTER 2022-06-02 06:06 | Emergency (ER) | payer MEDICARE ==
[2022-06-02] MEDS ORDERED: Sodium Chloride 0.9% 10 ML Syringe FLUSH PRN (06:25)
[2022-06-02 07:07] LABS: ESTIMATED GFR 71 mL/min (>60)
[2022-06-02] MEDS ORDERED: Sodium Chloride 0.9% 1,000 ML IV SCH (07:45)
[2022-06-02] MEDS ORDERED: traMADol 50 MG Tab PO ONE (10:09)
[2022-06-02] MEDS ORDERED: Acetaminophen 325 MG Tab PO ONE (10:10)
== END 2022-06-02 11:52 | disposition home or self-care (01) ==
LOC: JD.ED 06:06
DX: S22.080A Wedge compression fracture of T11-T12 vertebra, initial encounter for closed fracture (principal); E78.00 Pure hypercholesterolemia, unspecified; I10 Essential (primary) hypertension; K21.9 Gastro-esophageal reflux disease without esophagitis; E11.9 Type 2 diabetes mellitus without complications; E66.9 Obesity, unspecified; Z68.30 Body mass index [BMI] 30.0-30.9, adult; Z79.82 Long term (current) use of aspirin; Z79.899 Other long term (current) drug therapy; Z79.84 Long term (current) use of oral hypoglycemic drugs; W19.XXXA Unspecified fall, initial encounter; Y92.009 Unspecified place in unspecified non-institutional (private) residence as the place of occurrence of the external cause
CPT/HCPCS: 36415; 51701; 71045; 72100; 73502; 80053; 81001; 85025; 85610; 87086; 93005; 96360; 96361; 99284; A9270; J3490; J7030; 93010; 99283

== ENCOUNTER 2022-06-05 20:17 | Inpatient (IN) | payer MEDICARE ==
[2022-06-05] MEDS ORDERED: Sodium Chloride 0.9% 10 ML Syringe FLUSH PRN (20:22)
[2022-06-05 21:10] LABS: ESTIMATED GFR 54 mL/min (>60)
[2022-06-05] MEDS ORDERED: Potassium Chloride 20 MEQ Tab.ER PO ONE (21:33)
[2022-06-05] MEDS ORDERED: Acetaminophen 325 MG Tab PO PRN (23:37)
[2022-06-06] MEDS ORDERED: Acetaminophen 325 MG Tab PO PRN (00:08)
[2022-06-06] MEDS: Acetaminophen 325 MG Tab PO PRN ×4 (00:36→20:14)
[2022-06-06] MEDS ORDERED: Calcium Carbonate 500 MG Tab.Chew PO PRN (06:54)
[2022-06-06] MEDS ORDERED: Loperamide 2 MG Cap PO PRN (06:54)
[2022-06-06] MEDS ORDERED: Menthol/Zinc Oxide Ointment 3.5 GM Tube TOP PRN (06:54)
[2022-06-06] MEDS ORDERED: traMADol 50 MG Tab PO PRN (06:54)
[2022-06-06] MEDS ORDERED: Potassium Bicarbonate/Cit Ac 20 MEQ Effervescent Tab PO ONE (07:03)
[2022-06-06] MEDS: Aspirin 81 MG Tab.EC PO SCH (08:50)
[2022-06-06] MEDS: Ascorbic Acid 500 MG Tab PO SCH (08:50)
[2022-06-06] MEDS ORDERED: Lisinopril 20 MG Tab PO SCH (09:00)
[2022-06-06] MEDS ORDERED: Hydrochlorothiazide 12.5 MG Cap PO SCH (09:00)
[2022-06-06] MEDS ORDERED: Metoprolol Tartrate 25 MG Tab PO SCH (09:00)
[2022-06-06] MEDS: Heparin Sodium 5,000 Units/ML Vial SUBCUT SCH ×2 (11:53→17:59)
[2022-06-06] MEDS: Insulin Regular, Human 100 Units/ML 3 ML Vial SUBCUT SCH ×2 (12:41→18:00)
[2022-06-06] MEDS ORDERED: Magnesium Sulfate/Water 2 GM in Premix Bag 1 BAG IV ONE (13:00)
[2022-06-06] MEDS: Gabapentin 300 MG Cap PO SCH ×2 (20:06→20:15)
[2022-06-06] MEDS: Metoprolol Tartrate 25 MG Tab PO SCH (20:16)
[2022-06-06] MEDS: atorvaSTATin 20 MG Tab PO SCH (20:16)
[2022-06-06] MEDS: Lisinopril 20 MG Tab PO SCH (20:16)
[2022-06-06] MEDS: metFORMIN 500 MG Tab PO SCH (20:17)
[2022-06-06] MEDS ORDERED: metFORMIN 500 MG Tab PO SCH (21:00)
[2022-06-07] MEDS: Heparin Sodium 5,000 Units/ML Vial SUBCUT SCH ×3 (03:07→18:37)
[2022-06-07] MEDS: Acetaminophen 325 MG Tab PO PRN ×3 (04:54→19:54)
[2022-06-07] MEDS: metFORMIN 500 MG Tab PO SCH ×3 (08:36→20:37)
[2022-06-07] MEDS: Metoprolol Tartrate 25 MG Tab PO SCH ×3 (08:36→20:37)
[2022-06-07] MEDS: Ascorbic Acid 500 MG Tab PO SCH (08:36)
[2022-06-07] MEDS: Insulin Regular, Human 100 Units/ML 3 ML Vial SUBCUT SCH ×3 (08:37→18:37)
[2022-06-07] MEDS: Aspirin 81 MG Tab.EC PO SCH (08:37)
[2022-06-07] MEDS: Hydrochlorothiazide 12.5 MG Cap PO SCH (08:39)
[2022-06-07] MEDS: Lisinopril 20 MG Tab PO SCH ×3 (08:40→20:38)
[2022-06-07] MEDS: Gabapentin 300 MG Cap PO SCH ×4 (08:40→20:38)
[2022-06-07] MEDS: SITAGLIPTIN PHOS PO SCH (19:15)
[2022-06-07] MEDS: METFORMIN HCL PO SCH (19:15)
[2022-06-07] MEDS: [UNRECOGNIZED DRUG - OTHER] PO SCH (19:15)
[2022-06-07] MEDS: atorvaSTATin 20 MG Tab PO SCH ×2 (19:53→20:37)
[2022-06-08] MEDS: Heparin Sodium 5,000 Units/ML Vial SUBCUT SCH ×3 (01:49→17:30)
[2022-06-08] MEDS: Acetaminophen 325 MG Tab PO PRN ×2 (07:34→21:59)
[2022-06-08] MEDS ORDERED: Potassium Bicarbonate/Cit Ac 20 MEQ Effervescent Tab PO ONE (09:00)
[2022-06-08] MEDS: Hydrochlorothiazide 12.5 MG Cap PO SCH (09:24)
[2022-06-08] MEDS: Lisinopril 20 MG Tab PO SCH ×2 (09:25→21:57)
[2022-06-08] MEDS: Aspirin 81 MG Tab.EC PO SCH (09:26)
[2022-06-08] MEDS: Metoprolol Tartrate 25 MG Tab PO SCH ×2 (09:26→21:56)
[2022-06-08] MEDS: Ascorbic Acid 500 MG Tab PO SCH (09:26)
[2022-06-08] MEDS: metFORMIN 500 MG Tab PO SCH ×2 (09:27→21:56)
[2022-06-08] MEDS: Gabapentin 600 MG Tab PO SCH ×3 (09:27→21:56)
[2022-06-08] MEDS: Insulin Regular, Human 100 Units/ML 3 ML Vial SUBCUT SCH ×3 (09:28→18:57)
[2022-06-08] MEDS: atorvaSTATin 20 MG Tab PO SCH (21:57)
[2022-06-09] MEDS: Heparin Sodium 5,000 Units/ML Vial SUBCUT SCH ×3 (02:21→18:50)
[2022-06-09] MEDS: Acetaminophen 325 MG Tab PO PRN ×3 (05:46→20:21)
[2022-06-09] MEDS: metFORMIN 500 MG Tab PO SCH ×2 (08:38→20:20)
[2022-06-09] MEDS: Hydrochlorothiazide 12.5 MG Cap PO SCH (08:48)
[2022-06-09] MEDS: Gabapentin 600 MG Tab PO SCH ×3 (08:48→20:23)
[2022-06-09] MEDS: Aspirin 81 MG Tab.EC PO SCH (08:48)
[2022-06-09] MEDS: Ascorbic Acid 500 MG Tab PO SCH (08:49)
[2022-06-09] MEDS: Insulin Regular, Human 100 Units/ML 3 ML Vial SUBCUT SCH ×3 (08:50→18:55)
[2022-06-09] MEDS ORDERED: Cholecalciferol (Vitamin D3) 5,000 UNIT Cap PO SCH (09:00)
[2022-06-09] MEDS: Metoprolol Tartrate 25 MG Tab PO SCH ×2 (09:09→20:22)
[2022-06-09] MEDS: Lisinopril 20 MG Tab PO SCH ×2 (09:10→20:23)
[2022-06-09] MEDS ORDERED: Potassium Bicarbonate/Cit Ac 20 MEQ Effervescent Tab PO ONE (10:23)
[2022-06-09] MEDS: atorvaSTATin 20 MG Tab PO SCH (20:20)
[2022-06-10] MEDS: Heparin Sodium 5,000 Units/ML Vial SUBCUT SCH ×2 (02:28→11:41)
[2022-06-10] MEDS: Acetaminophen 325 MG Tab PO PRN ×2 (02:34→06:45)
[2022-06-10] MEDS ORDERED: Loperamide 2 MG Cap PO PRN (07:53)
[2022-06-10] MEDS: Aspirin 81 MG Tab.EC PO SCH (08:25)
[2022-06-10] MEDS: Metoprolol Tartrate 25 MG Tab PO SCH (08:25)
[2022-06-10] MEDS: Ascorbic Acid 500 MG Tab PO SCH (08:25)
[2022-06-10] MEDS: Hydrochlorothiazide 12.5 MG Cap PO SCH (08:26)
[2022-06-10] MEDS: Gabapentin 600 MG Tab PO SCH (08:26)
[2022-06-10] MEDS: Lisinopril 20 MG Tab PO SCH (08:26)
[2022-06-10] MEDS: metFORMIN 500 MG Tab PO SCH (08:26)
[2022-06-10] MEDS: Insulin Regular, Human 100 Units/ML 3 ML Vial SUBCUT SCH (08:27)
[2022-06-10] MEDS ORDERED: Ibuprofen 600 MG Tab PO ONE (09:30)
== END 2022-06-10 12:30 | DRG 948 ==
LOC: JD.ED 20:17 → JD.MS 21:34 → OBSVTOIN 06-07 12:20
PROVIDERS: ADMIT Internal Medicine; ATTEND Internal Medicine
DX: R41.82 Altered mental status, unspecified (principal); S22.080A Wedge compression fracture of T11-T12 vertebra, initial encounter for closed fracture; R53.1 Weakness; E11.9 Type 2 diabetes mellitus without complications; F03.B0 Unspecified dementia, moderate, without behavioral disturbance, psychotic disturbance, mood disturbance, and anxiety; E78.00 Pure hypercholesterolemia, unspecified; I10 Essential (primary) hypertension; K21.9 Gastro-esophageal reflux disease without esophagitis; I73.9 Peripheral vascular disease, unspecified; M19.90 Unspecified osteoarthritis, unspecified site; E87.6 Hypokalemia; F41.9 Anxiety disorder, unspecified; T40.425A Adverse effect of tramadol, initial encounter; E11.51 Type 2 diabetes mellitus with diabetic peripheral angiopathy without gangrene; E66.9 Obesity, unspecified; Z98.49 Cataract extraction status, unspecified eye; Z90.710 Acquired absence of both cervix and uterus; Z79.82 Long term (current) use of aspirin; Z79.899 Other long term (current) drug therapy; Z68.28 Body mass index [BMI] 28.0-28.9, adult
CPT/HCPCS: 36415 ×3; 70450; 70496; 70498; 71045; 80048; 80053 ×2; 81001; 82947 ×5; 83735; 85025 ×3; 85610; 85730; 93005; 99285; A9270 ×24; J1644 ×4; J1815; J3475; 93010; 96372; 96374; 97110-GP; 97116-GP; 97162-GP; 97166-GO; 97535-GO; G0378